=== PATIENT | female | born 1945 | race Caucasian/White ===

== ENCOUNTER → 2018-11-16 09:51 | Outpatient (CLI) | payer MEDICARE, SELFPAY ==
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
--- NOTE | 2018-11-16 | BRBX_PTH ---
PATIENT: PEGGY LINCOLN LOC: [facility] U#:[id number] AGE/SX: 79/F ROOM: RE11/16/[address]: Dr. Jones Calix MD : 1945 BED: DIS: SPEC #: [id number] RECD: 11/16/18 14:19 STATUS: AIDEN LUIS #: [id number] MICKEY: 11/16/18 00:[address]: Jones Calix DEPT: SURGICAL PATHOLOGY RECD BY: Car Jenkins ENTERED: 11/16/18 14:19 SP TYPE: BREAST BX OTHR DR: SANDY Spencer Tissues: A - Left breast, NOS B - Right breast, NOS Procedures: Surgery Specimen Level IV HEADER OPERATION: Bilateral breast stereotactic biopsy PRE-OP DIAGNOSIS: Bilateral breast calcifications TISSUE SUBMITTED: A - Left breast core tissue, B - Right breast core tissue MICROSCOPIC DIAGNOSIS A. Left breast, stereotactic core biopsy: Hyalinized fibroadenoma with focal calcifications. Negative for atypia or malignancy. B. Right breast, stereotactic core biopsy: Hyalinized fibroadenoma with focal calcifications. Focal intraductal hyperplasia without atypia. Negative for malignancy. JARRED:connor 11/17/18 COMMENT Correlation with clinical, radiologic findings and appropriate follow up are necessary. MICROSCOPIC DESCRIPTION Slides are reviewed. GROSS DESCRIPTION A - Received in fixative is one container labeled with the patient's name and designated left breast. The specimen consists of multiple elongated fragments of oneal-yellow fibroadipose tissue that in aggregate measure 5 x 0.3 x 0.1 cm. The entire specimen is submitted in two cassettes. B - Received in fixative is one container labeled with the patient's name and designated right breast. The specimen consists of multiple elongated fragments of oneal-yellow fibroadipose tissue that in aggregate measure 7.5 x 3 x 0.3 cm. The entire specimen is submitted in three cassettes. / JARRED:connor 11/16/18 TC:5 CPT: 21155 x2
--- NOTE | 2018-11-16 16:03 | OP.PCM_ITS ---
Report of Operation Date of Procedure: 11/16/18 Pre-Operative Diagnosis: bilateral breast microcalcifications Post-Operative Diagnosis: bilateral breast microcalcifications - successful bilateral biopsy Surgery/Procedure Performed:: left upper outer quadrant stereotactic biopsy with specimen radiograph and gel marker clip placement. Right central stereotactic biopsy with specimen radiograph and gel marker clip placement general education professor: None Type of Anesthesia:: Local Specimen's removed: left breast tissue, right breast tissue Estimated Blood Loss (mL): minimal Description of Procedure: The patient was brought to the stereotactic suite and informed of the plan course of events. The left breast was positioned CC approach on the Ferrell stereotactic table. Mammographic image demonstrated the area of abnormality to be located in the center of the radiograph. Stereotactic images were then obtained which demonstrated good positioning of the abnormality for biopsy with good stroke flako parameters. The breast was cleaned with Betadine area did one percent lidocaine was used to anesthetize the skin and a small stab incision made. An 8-gauge mammotome needle was placed into the pre-fire position. Stereotactic images demonstrated good positioning around the planned biopsy site. Local anesthetic injected deeply in the breast. The needle was deployed. Post deployment images demonstrated good positioning of the planned biopsy site. Multiple vacuum-assisted samples were obtained and [id number] fashion. Specimen radiograph demonstrated micro-calcifications in the sample. A gel marker clip was deployed. Post biopsy images demonstrated good position of the clip relative the biopsy cavity. The breast was removed from compression. Steri-Strips and a dressing applied. The right breast was positioned CC approach on the Ferrell stereotactic table. Mammographic image demonstrated the area of abnormality to be located in the center of the radiograph. Stereotactic images were then obtained which demonstrated good positioning of the abnormality for biopsy with good stroke flako parameters. The breast was cleaned with Betadine area did one percent lidocaine was used to anesthetize the skin and a small stab incision made. An 8-gauge mammotome needle was placed into the pre-fire position. Stereotactic images demonstrated good positioning around the planned biopsy site. Local anesthetic injected deeply in the breast. The needle was deployed. Post deployment images demonstrated good positioning of the planned biopsy site. Multiple vacuum-assisted samples were obtained and [id number] fashion. Specimen radiograph demonstrated micro-calcifications in the sample. A gel marker clip was deployed. Post biopsy images demonstrated good position of the clip relative the biopsy cavity. The breast was removed from compression. Steri-Strips and a dressing applied. Post procedure mammogram images were obtained.
== END ==
PROVIDERS: Family Provider Physician Assistant; PCP Physician Assistant; Referring Provider Surgery; Visit Provider Surgery
DX: D24.2 Benign neoplasm of left breast (principal); D24.1 Benign neoplasm of right breast; N60.91 Unspecified benign mammary dysplasia of right breast
CPT/HCPCS: 19081; 88305; J7050; A4648

== ENCOUNTER 2020-12-17 13:00 | Emergency (ER) | payer MEDICARE, SELFPAY ==
[2020-12-17 13:03] VITALS: BP 148/113; PULSE 89; RESP 16; TEMP 36.8; O2SAT 97; BMI 33.1
--- NOTE | 2020-12-17 13:21 | CT_ITS ---
HISTORY: LLQ pain. TECHNIQUE: Helically acquired images were obtained of the abdomen and pelvis with IV contrast. A radiation dose optimization technique was used for this scan. IV Contrast dosage and agent: 100 mL Isovue-300. Oral contrast: None. # of images incl. paperwork: [id number]. COMPARISON: None. FINDINGS: LOWER CHEST: Minimal bibasilar atelectasis or scarring. BOWEL: Small hiatal hernia. Bowel including appendix nondilated. Colonic diverticulosis with wall thickening and moderate pericolonic inflammation in the left lower quadrant. LIVER/SPLEEN/PANCREAS: Homogeneous. GALLBLADDER/BILIARY TREE: Gallbladder present. KIDNEYS/ADRENAL GLANDS: Unremarkable. PERITONEUM: No pericolonic fluid collection or free air. VESSELS: No abdominal aortic aneurysm. Mild atherosclerosis. PELVIC ORGANS: Absent uterus. Mild prolapse of the bladder. BONES: Degenerative change. CT/Abdomen/Pelvis W IV Cont ONLY IMPRESSION: Acute sigmoid diverticulitis. Individualized dose optimization techniques were used for this CT. at 1433 Reported and signed by: Karely Montejo MD Electronically Signed: Karely Montejo MD at 14:31 EDT Tel , Service support ,
--- NOTE | 2020-12-17 13:31 | EDS_ITS ---
HPI HPI - GI History of Present Illness Chief Complaint: Abd Pain Informant: patient Abdominal Pain/Flank Pain Onset: Yesterday Context: Gradual Onset Timing: Continuous Quality: Aching Location: LLQ Current Severity: Moderate Maximum Severity: 10/10 Worsened by: Nothing Relieved by: Nothing Nausea/Vomiting/Emesis GI Symptom: Positive for Nausea; Negative for Vomiting Onset: - (Occasionally) Diarrhea/Melena/Hematochezia GI Symptom: Negative for Diarrhea, Melena and Hematochezia Associated Symptoms Associated Symptoms: Negative for Dysuria, Frequency, Hematuria and Urgency Narrative Narrative: Patient started getting left lower quadrant pain yesterday, worse today, sometimes comes in waves and is as bad as a 10/10 but not that bad right now. No vomiting but occasional nausea. Normal bowel movements with no blood. Normal urination. No pain into her back or radiating elsewhere. She had a colonoscopy last month that showed diverticulosis. History of a prior hysterectomy no other abdominal surgeries. No fevers or chills yesterday or today. [facility] Medical History (Updated 12/17/20 @ 15:[address] Aaron Cota MD) Diverticulosis Home Medications ciprofloxacin HCl 500 mg PO BID #20 tablet 12/17/20 [Rx Last Taken Unknown] hydrocodone-acetaminophen 1 tab PO Q4H PRN PRN 3 Days #14 tablet 12/17/20 [Rx Last Taken Unknown] metronidazole 500 mg PO BID #20 tab 12/17/20 [Rx Last Taken Unknown] Allergy/AdvReac Type Severity Reaction Status Date / Time nitrofurantoin Allergy Upset Verified 12/17/20 13:02 [From Macrobid] Stomach Sulfa (Sulfonamide Allergy Upset Verified 12/17/20 13:02 Antibiotics) Stomach sulfamethoxazole Allergy Upset Verified 12/17/20 13:02 [From Bactrim] Stomach sunflower seed Allergy Upset Verified 12/17/20 13:02 Stomach trimethoprim [From Bactrim] Allergy Upset Verified 12/17/20 13:02 Stomach Surgical History Hx of hysterectomy Social History Smoking Status: Never smoker ROS ROS ED Constitutional Constitutional ED: Denies chills or fever(s) Eyes Eyes: Denies change in vision or diplopia ENT ENT ED: Denies rhinorrhea or sore throat Cardiovascular Cardiovascular: Denies chest pain or palpitations Respiratory/Chest Respiratory/Chest: Denies cough or dyspnea Gastrointestinal Gastrointestinal: Reports abdominal pain and nausea; Denies diarrhea or vomiting Genitourinary Genitourinary ED: Denies dysuria or hematuria Musculoskeletal Musculoskeletal: Denies back pain or neck pain Integumentary Denies abscess or rash Neurologic Neurologic: Denies headache(s), paresthesias or weakness Psychiatric Psychiatric: Denies anxiety or suicidal thoughts EXAM Physical Exam Const Vital Signs: 12/17/20 13:03 12/17/20 15:40 Temperature 98.3 F Temperature Source Temporal Pulse Rate 89 84 Respiratory Rate 16 16 Blood Pressure 148/113 H 133/72 H Blood Pressure Mean 124 92 Pulse Ox 97 94 Oxygen Delivery Method Room Air Room Air Positive well nourished and well developed General Appearance ED: well developed and NAD HEENT Reports moist mucous membranes normocephalic and atraumatic Eyes PERRL and EOMs intact bilaterally Neck full ROM and supple Resp normal respiratory effort and clear to auscultation bilaterally Cardio regular rate, regular rhythm and no murmurs GI non-distended Auscultation: normoactive bowel sounds Palpation: soft and tender LLQ; Negative for guarding or rebound tenderness present Back/Spine no CVA tenderness General Back: other FROM Extremity normal to inspection General Extremety ED: Negative for edema, pulses abnormal or tenderness General Extremity: Negative for edema or pulses abnormal Neuro oriented x3, CN's II-XII intact bilaterally and no sensory deficits noted Sensorium / Orientation: awake and alert Motor Exam: strength 5/5 throughout Skin no rashes or lesions noted and no wounds MDM MDM MDM Narrative Medical decision making narrative: Patient with a mild leukocytosis and a CT consistent with uncomplicated sigmoid diverticulitis. Patient's pain is under control with 2 mg of morphine. She was offered more but states she would rather just have some Tylenol or ibuprofen for her headache. She is comfortable and stable. I will give her a long-acting dose of IV ceftriaxone in addition to starting her on Cipro and Flagyl and advised close outpatient follow-up we discussed reasons to return she is comfortable with that plan and prescription for some analgesics. Lab Data Attestation: I reviewed the patient's lab results. Labs: Laboratory Results - last 24 hr 12/17/20 12/17/20 12/17/20 13:25 13:25 14:30 WBC 11.3 H RBC 4.38 Hgb 13.7 Hct 42.4 MCV 96.8 MCH 31.3 MCHC 32.3 RDW Std Deviation 45.1 H RDW Coeff of Flash 12.5 Plt Count 283 MPV 9.3 Immature Gran % (Auto) 0.300 Neut % (Auto) 78.0 H Lymph % (Auto) 12.3 L [place] % (Auto) 7.9 Eos % (Auto) 0.9 Baso % (Auto) 0.6 Absolute Neuts (auto) 8.9 H Absolute Lymphs (auto) 1.39 Nucleated RBC % 0 Sodium 140 Potassium 3.8 Chloride 106 Carbon Dioxide 29.0 Anion Gap 5 BUN 10 Creatinine 0.68 Estim Creat Clear Calc 40.21 Est GFR (MDRD) Af Amer 107 Est GFR (MDRD) Non-Af 89 BUN/Creatinine Ratio 14.6 Glucose 115 H Calcium 8.6 Urine Color Yellow Urine Clarity Clear Urine pH 8.0 Ur Specific [place] 1.030 Urine Protein Negative Urine Glucose (UA) Normal Urine Ketones Negative Urine Occult Blood Negative Urine Nitrite Negative Urine Bilirubin Negative Urine Urobilinogen Normal Ur Leukocyte Esterase Negative Urine RBC 0 SEEN Urine WBC 0-5 SEEN Ur Squamous Epith Cells 0-5 SEEN Urine Bacteria RARE Urine Mucus 0 SEEN Radiography Diagnostic Testing: Clinical Impression(s) from Imaging Studies Abdomen/Pelvis CT 12/17/20 13:21 IMPRESSION: Acute sigmoid diverticulitis. Individualized dose optimization techniques were used for this CT. at 1433 Reported and signed by: Karely Montejo MD Electronically Signed: Karely Montejo MD at 14:31 EDT Tel , Service support , Discharge Plan Triage Chief Complaint: Abd Pain ED Provider: Aaron Cota Dx/Rx/DC Orders Clinical Impression: Sigmoid diverticulitis Instructions: ED Diverticulitis Prescriptions: New hydrocodone-acetaminophen [hydrocodone-acetaminophen] 1 TABLET tablet 1 tab PO Q4H PRN PRN (Reason: Pain) 3 Days Qty: 14 RF: 0 metronidazole [metronidazole] 500 MG tablet 500 mg PO BID Qty: 20 RF: 0 ciprofloxacin HCl [ciprofloxacin HCl] 500 MG tablet 500 mg PO BID Qty: 20 RF: 0 Primary Care Provider: Eduin Aguilar Referrals: Eduin Aguilar, PA [Primary Care Provider] - 3-5 Days if not improving Disposition Disposition: Home, Self Care
[2020-12-17 13:41] LABS: Absolute Lymphocyte Count 1.39 X10^3/uL (0.83-4.51); Absolute Neutrophil Count 8.9 X10^3/uL (2.0-7.7); Basophil# 0.07 X10^3/uL; Basophil% 0.6 % (0-1); Eosinophils% 0.9 % (0-5); Hematocrit 42.4 % (37-47); Hemoglobin 13.7 g/dL (12.0-15.0); Lymphocyte # 1.39 X10^3/ul (0.83-4.51); Lymphocyte % 12.3 % (19-41); Mean Corp Hgb Conc 32.3 g/dL (32-36); Mean Corpuscular Hgb 31.3 pg (27.0-32.0); Mean Corpuscular Volume 96.8 fL (81-99); Mean Platelet Vol. 9.3 fl (6.2-12.0); Monocyte% 7.9 % (0-10); NRBC Flagged by Analyzer 0 % (0-5); Neutrophil # 8.85 X10^3/uL (2.7-7.7); Platelet Count 283 K/mm3 (150-450); RBC Distribution Width CV 12.5 % (11.6-14.6); RBC Distribution Width SD 45.1 fl (35.1-43.9); Red Blood Count 4.38 M/mm3 (4.2-5.4); White Blood Count 11.3 K/mm3 (4.4-11.0)
[2020-12-17 13:44] LABS: Anion Gap 5 (5-15); BUN 10 mg/dL (7-18); BUN/Creat Ratio 14.6 RATIO (10-20); Calcium,Total 8.6 mg/dL (8.5-10.1); Chloride 106 mmol/L (98-107); Creatinine, Serum 0.68 mg/dL (0.55-1.02); EST Glomerular Filtration Rate 89 mL/min (>60); Est Glom Filt Rate - Afr Amer 107 mL/min (>60); Estimated Creatinine Clearance 40.21 ml/min; Glucose 115 mg/dL (74-106); Potassium 3.8 mmol/L (3.5-5.1); Sodium Level 140 mmol/L (136-145)
[2020-12-17] MEDS: Ondansetron 4 MG/2 ML Vial IV (13:46)
[2020-12-17] MEDS: 0.9% Normal Saline 1,000 ML 250 ML IV (13:46)
[2020-12-17] MEDS: Morphine 2 MG/ML Syringe IV (13:46)
[2020-12-17 14:35] LABS: Mucous, Urine 0 SEEN /hpf (<or=2+); Red Blood Cells-Urine 0 SEEN /hpf (0-5)
[2020-12-17 14:38] LABS: Color, Urine Yellow (Yellow); Glucose, Dipstick Normal (Normal); Ketone-Dipstick Negative (Negative); Leukocyte Esterase-Dipstick Negative /ul (Negative); Nitrite-Dipstick Negative (Negative); Occult Blood-Urine Negative /ul (Negative); Protein-Dipstick Negative (Negative); Urine Bilirubin Dipstick Negative (Negative); Urine Clarity Clear (Clear); Urine Urobilinogen Normal (Normal)
[2020-12-17 14:51] LABS: Bacteria RARE /hpf (None Seen); Squamous Epithelial Cells - UA 0-5 SEEN /hpf (5-10); White Blood Cells 0-5 SEEN /hpf (0-5)
[2020-12-17 15:40] VITALS: BP 133/72; PULSE 84; RESP 16; O2SAT 94
[2020-12-17] MEDS: Ceftriaxone 1 GM/50 ML BAG IV (16:07)
[2020-12-17] MEDS: metroNIDAZOLE 500 MG Tablet PO (16:09)
[2020-12-17] MEDS: Ibuprofen 200 MG Tablet 400 MG PO (16:09)
[2020-12-17] MEDS: Ciprofloxacin 500 MG Tablet PO (16:11)
== END 2020-12-17 16:54 | disposition home or self-care (01) ==
PROVIDERS: Emergency Provider Emergency Medicine; PCP Physician Assistant
DX: K57.32 Diverticulitis of large intestine without perforation or abscess without bleeding (principal)
CPT/HCPCS: 74177; 80048; 81001; 85025; 90471; 96361; 96365; 96374; 96375; 99284; Q9967; J2405

== ENCOUNTER 2022-04-02 03:02 | Inpatient (IN) | payer MEDICARE, SELFPAY ==
[2022-04-02 03:03] VITALS: BP 140/89; PULSE 67; RESP 15; O2SAT 97
[2022-04-02 03:04] VITALS: TEMP 36.8; BMI 31.0
--- NOTE | 2022-04-02 03:12 | EDS_ITS ---
HPI HPI - GI History of Present Illness Chief Complaint: GI Bleed Informant: patient and EMS Narrative Narrative: Patient presents around 3 AM for rectal bleeding. She had hemorrhoid surgery at [facility] about 2 weeks ago, she has been taking a stool softener, she went to the bathroom earlier tonight and had a little bit of stool with some blood, and then subsequently the bleeding started becoming worse along with clots and now she is just passing blood with clots and no stool. She feels a little shaky but not lightheaded. She denies any abdominal pain, nausea, vomiting, nor back pain. No other issues, she has some perirectal/perianal irritation but not major pain. Patient takes no anticoagulant or antiplatelet medications. [facility] Medical History (Updated 04/02/22 @ 06:[address] Aaron Cota MD) Diverticulosis Home Medications ciprofloxacin HCl 500 mg tablet 500 mg PO BID #20 TABLETS 12/17/20 [Rx Last Taken Unknown] hydrocodone-acetaminophen 5-325mg 5mg-325mg 1 tab PO Q4H PRN PRN Pain 3 days #14 TABLETS 12/17/20 [Rx Last Taken Unknown] metronidazole 500 mg tablet 500 mg PO BID #20 tabs 12/17/20 [Rx Last Taken Unknown] Allergy/AdvReac Type Severity Reaction Status Date / Time nitrofurantoin Allergy Upset Verified 12/17/20 13:02 [From Macrobid] Stomach Sulfa (Sulfonamide Allergy Upset Verified 12/17/20 13:02 Antibiotics) Stomach sulfamethoxazole Allergy Upset Verified 12/17/20 13:02 [From Bactrim] Stomach sunflower seed Allergy Upset Verified 12/17/20 13:02 Stomach trimethoprim [From Bactrim] Allergy Upset Verified 12/17/20 13:02 Stomach Surgical History (Updated 04/02/22 @ 03:[address] Aaron Cota MD) H/O hemorrhoidectomy Hx of hysterectomy Social History Smoking Status: Never smoker ROS ROS ED Constitutional Constitutional ED: Reports malaise; Denies chills or fever(s) Eyes Eyes: Denies change in vision or diplopia ENT ENT ED: Denies rhinorrhea or sore throat Cardiovascular Cardiovascular: Denies chest pain or palpitations Respiratory/Chest Respiratory/Chest: Denies cough or dyspnea Gastrointestinal Gastrointestinal: Reports as per HPI and hematochezia; Denies abdominal pain, diarrhea, melena, nausea or vomiting Genitourinary Genitourinary ED: Denies dysuria or hematuria Musculoskeletal Musculoskeletal: Denies back pain or neck pain Integumentary Denies abscess or rash Neurologic Neurologic: Denies headache(s), paresthesias or weakness Psychiatric Psychiatric: Denies anxiety or suicidal thoughts EXAM Physical Exam Const Vital Signs: 04/02/22 03:04 04/02/22 03:03 Temperature 98.2 F Temperature Source Temporal Pulse Rate 67 Respiratory Rate 15 Blood Pressure 140/89 H Blood Pressure Mean 106 Pulse Ox 97 Oxygen Delivery Method Room Air Positive well nourished and well developed General Appearance ED: well developed and NAD HEENT Reports moist mucous membranes normocephalic and atraumatic Eyes PERRL and EOMs intact bilaterally Neck full ROM and supple Resp normal respiratory effort and clear to auscultation bilaterally Cardio regular rate, regular rhythm and no murmurs Rate: Negative for tachycardic GI non-tender and non-distended GI Narrative: Rectal: Multiple external nonthrombosed hemorrhoids without any obvious evidence of active bleeding at any of them. On digital rectal, it is uncomfortable but there is no palpable collection/mass, and there is no blood or pooling, maybe a trace of residual light red discolored brown stool. Auscultation: normoactive bowel sounds Palpation: soft Back/Spine no CVA tenderness General Back: other FROM Extremity normal to inspection General Extremety ED: Negative for edema, pulses abnormal or tenderness General Extremity: Negative for edema or pulses abnormal Neuro oriented x3, CN's II-XII intact bilaterally and no sensory deficits noted Sensorium / Orientation: awake and alert Motor Exam: strength 5/5 throughout Skin no rashes or lesions noted and no wounds MDM MDM MDM Narrative Medical decision making narrative: Patient was given IV fluids will be wait for labs to return, she is not anemic with a hemoglobin of 14.6. Vital signs have been stable/normal, a little hyp ertensive. She did feel better with the IV fluids. Early on prior to getting the fluids, she did go to the bathroom and have a bowel movement with some stool and blood and clots. We then observed her for a while. Since on rectal exam there is no active bleeding, this is after she went and had the bloody bowel movement in the ED, bleeding diverticulosis is in the differential diagnosis; she did have diverticulitis in the past. On multiple other occasions, the patient continued to have larger amounts of bright red blood per rectum with clots. Since it is not improving, I do not think she should go home and she should be observed. I gave her the option if she wanted to go back to [place] since that is where her surgeon was, however she would prefer to stay locally. Discussed w/ Dr. Grant hospitalist and Dr. Brito GI. Lab Data Attestation: I reviewed the patient's lab results. Labs: Laboratory Results - last 24 hr 04/02/22 04/02/22 03:25 03:25 WBC 14.1 H RBC 4.83 Hgb 14.6 Hct 45.9 MCV 95.0 MCH 30.2 MCHC 31.8 L RDW Std Deviation 42.4 RDW Coeff of Flash 12.1 Plt Count 470 H MPV 9.2 Immature Gran % (Auto) 0.500 Neut % (Auto) 72.6 H Lymph % (Auto) 17.6 L [place] % (Auto) 7.1 Eos % (Auto) 1.4 Baso % (Auto) 0.8 Absolute Neuts (auto) 10.2 H Absolute Lymphs (auto) 2.49 Nucleated RBC % 0 Sodium 140 Potassium 3.8 Chloride 103 Carbon Dioxide 27.0 Anion Gap 10 BUN 18 Creatinine 0.74 Estim Creat Clear Calc 40.68 Est GFR (MDRD) Af Amer 97 Est GFR (MDRD) Non-Af 81 BUN/Creatinine Ratio 24.2 H Glucose 148 H Calcium 8.9 Discharge Plan Dx/Rx/DC Orders Clinical Impression: Acute lower gastrointestinal bleeding Disposition Disposition: Acute Care Hospital [facility]
[2022-04-02 03:33] LABS: Absolute Lymphocyte Count 2.49 X10^3/uL (0.83-4.51); Absolute Neutrophil Count 10.2 X10^3/uL (2.0-7.7); Basophil# 0.11 X10^3/uL; Basophil% 0.8 % (0-1); Eosinophils% 1.4 % (0-5); Hematocrit 45.9 % (37-47); Hemoglobin 14.6 g/dL (12.0-15.0); Lymphocyte # 2.49 X10^3/ul (0.83-4.51); Lymphocyte % 17.6 % (19-41); Mean Corp Hgb Conc 31.8 g/dL (32-36); Mean Corpuscular Hgb 30.2 pg (27.0-32.0); Mean Platelet Vol. 9.2 fl (6.2-12.0); Monocyte% 7.1 % (0-10); NRBC Flagged by Analyzer 0 % (0-5); Neutrophil # 10.24 X10^3/uL (2.7-7.7); Neutrophil % 72.6 % (47-70); Platelet Count 470 K/mm3 (150-450); RBC Distribution Width CV 12.1 % (11.6-14.6); RBC Distribution Width SD 42.4 fl (35.1-43.9); Red Blood Count 4.83 M/mm3 (4.2-5.4); White Blood Count 14.1 K/mm3 (4.4-11.0)
[2022-04-02 03:47] LABS: Anion Gap 10 (5-15); BUN 18 mg/dL (7-18); BUN/Creat Ratio 24.2 RATIO (10-20); Calcium,Total 8.9 mg/dL (8.5-10.1); Chloride 103 mmol/L (98-107); Creatinine, Serum 0.74 mg/dL (0.55-1.02); EST Glomerular Filtration Rate 81 mL/min (>60); Est Glom Filt Rate - Afr Amer 97 mL/min (>60); Estimated Creatinine Clearance 40.68 ml/min; Glucose 148 mg/dL (74-106); Potassium 3.8 mmol/L (3.5-5.1); Sodium Level 140 mmol/L (136-145)
--- NOTE | 2022-04-02 06:42 | PCM.PN.BLA ---
Progress Note Patient was not seen or examined. History was taken from emergency department doctor. Reportedly patient recently had hemorrhoidal surgery at [facility]. Per Emergency Department doctor examination bleeding is likely not coming from previous hemorrhoid site but likely diverticular bleed.
--- NOTE | 2022-04-02 07:18 | HP.PCM.HOS_ITS ---
HPI - General General Date of Admission: 04/02/22 Date of Service: 04/02/22 Chief Complaint: Bleeding per rectum HPI Narrative PEGGY LINCOLN, is a 76 F who underwent hemorrhoidal surgery at [facility] on 03/22/2022 who presented with bleeding per rectum. Per patient symptoms started in the early hours of the morning. She denied any pain prior to the onset of bleeding. She did notice clots. In view of persistent nature of symptoms presented to the emergency department. A presumptive diagnosis of acute diverticular bleed was made patient admitted to regular nursing floor with consultation placed to GI [facility] Medical History Diverticulosis Home Medications ciprofloxacin HCl 500 mg tablet 500 mg PO BID #20 TABLETS 12/17/20 [Rx Last Taken Unknown] hydrocodone-acetaminophen 5-325mg 5mg-325mg 1 tab PO Q4H PRN PRN Pain 3 days #14 TABLETS 12/17/20 [Rx Last Taken Unknown] metronidazole 500 mg tablet 500 mg PO BID #20 tabs 12/17/20 [Rx Last Taken Unknown] Allergy/AdvReac Type Severity Reaction Status Date / Time nitrofurantoin Allergy Upset Verified 12/17/20 13:02 [From Macrobid] Stomach Sulfa (Sulfonamide Allergy Upset Verified 12/17/20 13:02 Antibiotics) Stomach sulfamethoxazole Allergy Upset Verified 12/17/20 13:02 [From Bactrim] Stomach sunflower seed Allergy Upset Verified 12/17/20 13:02 Stomach trimethoprim [From Bactrim] Allergy Upset Verified 12/17/20 13:02 Stomach Family History (Updated 04/02/22 @ 07:[address] Kirt Greenberg MD) Mother Asthma Surgical History H/O hemorrhoidectomy Hx of hysterectomy Social History Smoking Status: Never smoker ROS ROS Narrative GENERAL: denies fever, chills, night sweats, weight loss, anorexia HEENT: denies headache, sinus congestion, or drainage, dysphagia RESPIRATORY: denies cough, sputum production, shortness of breath, dyspnea on exertion CARDIAC: denies chest pain, palpitations, orthopnea, PND GASTROINTESTINAL: Hematochezia GENITOURINARY: denies dysuria, urgency, frequency, heamaturia EXTREMITY: denies swelling MUSCULOSKELETAL: denies current joint pain or tenderness NEUROLOGIC: denies focal numbness, weakness, tingling HEMATOLOGIC: denies easy bruising and/or hemorrhage INTEGUMENT: denies rashes PSYCHIATRIC: denies suicidal or homicidal ideation Vital Signs Vital Signs Vital Signs: 04/02/22 03:04 04/02/22 03:03 Temperature 98.2 F Temperature Source Temporal Pulse Rate 67 Respiratory Rate 15 Blood Pressure 140/89 H Blood Pressure Mean 106 Pulse Ox 97 Oxygen Delivery Method Room Air Weight Weight: 82.024 kg Body Mass Index (BMI) 31.0 Physical Exam Narrative GENERAL: cooperative HEENT: Atraumatic; normocephalic EYES; Anicteric, Normal Conjunctiva NECK; supple, normal thyroid, RESPIRATORY: Diminished to auscultation CARDIOVASCULAR: Regular S1 S2, GI: soft, normoactive bowel sounds, : No Renal angle tenderness; EXTREMITIES: No edema, no clubbing, MUSCULOSKELETAL: no muscle wasting NEURO: Awake; no lateralizing signs. SKIN: No Rash PSYCH; Flat affect Results Lab / Micro Data Result Diagrams: 04/02/22 03:25 04/02/22 03:25 Labs: Laboratory Results - last 24 hr 04/02/22 03:25: WBC 14.1 H, RBC 4.83, Hgb 14.6, Hct 45.9, MCV 95.0, MCH 30.2, MCHC 31.8 L, RDW Std Deviation 42.4, RDW Coeff of Flash 12.1, Plt Count 470 H, MPV 9.2, Immature Gran % (Auto) 0.500, Neut % (Auto) 72.6 H, Lymph % (Auto) 17.6 L, [place] % (Auto) 7.1, Eos % (Auto) 1.4, Baso % (Auto) 0.8, Absolute Neuts (auto) 10.2 H, Absolute Lymphs (auto) 2.49, Nucleated RBC % 0 04/02/22 03:25: Sodium 140, Potassium 3.8, Chloride 103, Carbon Dioxide 27.0, Anion Gap 10, BUN 18, Creatinine 0.74, Estim Creat Clear Calc 40.68, Est GFR (MDRD) Af Amer 97, Est GFR (MDRD) Non-Af 81, BUN/Creatinine Ratio 24.2 H, Glucose 148 H, Calcium 8.9 Assessment & Plan Assessment/Plan (1) Acute lower gastrointestinal bleeding: PLAN: Plan Patient is a 76-year-old lady presented with bleeding per rectum 1. Acute lower GI bleed ? With high suspicion for diverticular bleed. Patient has been admitted to regular nursing floor as part of her management ordered CT of the abdomen and pelvis with contrast, H&H q. 6 hours and consultation placed to GI 2. Recent hemorrhoidal surgery ? Stable 3. Hyperglycemia ? Patient fasting blood glucose was 148 patient is not a known diabetic ordered hemoglobin A1c 4. Class I obesity with BMI of 31 ? Weight loss advised 5. DVT prophylaxis ? Bilateral SCDs Time spent in the patient's overall evaluation,decision-making process, review of diagnostic data, adjustment of management, discussion with other providers, nursing nursing and ancillary staff involved in patient's care documentation, 55 Minutes Advance planning; did discuss with the patient and family regarding advanced directives as well as CODE STATUS. Did explain the various scenarios involved ( FULL CODE, DNR CCA, DNR CCA with no intubation, and DNR CC and what each meant) patient elected full code with CPR and intubation if needed. Order was placed. Time spent on discussion 18 minutes. Charges/Coding Visit Charges Inpatient E&M: 76718 Init Hosp L2
--- NOTE | 2022-04-02 07:18 | CT_ITS ---
STUDY: CTA ABDOMEN AND PELVIS WITH CONTRAST REASON FOR EXAM: Female, 76 years old. Diverticular bleed RADIATION DOSAGE (If Supplied By Facility): CTDIvol = ( 20.84 ) mGy, DLP = ( 1992.39 ) mGycm TECHNIQUE: Transaxial images were obtained from the dome of the diaphragm to the symphysis pubis without oral contrast. IV 100mL Isovue-370 was administered. Sagittal and coronal images were reconstructed. Individualized dose optimization techniques were used for this CT. COMPARISON: Comparison is made with prior study 12/17/2020. FINDINGS: The visualized lung bases are unremarkable. Coronary artery calcification. There is decreased attenuation of the liver consistent with steatosis. Normal gallbladder and extrahepatic biliary system. Normal spleen. Normal pancreas. Normal bilateral adrenal glands. Normal right kidney. Normal left kidney. There is a small hiatal hernia. Normal small intestine. There are multiple colonic diverticula consistent with diverticulosis. The appendix is visualized and appears normal. There is scattered atherosclerotic calcification of the abdominal aorta, without a demonstrated aneurysm. Normal inferior vena cava. Normal retroperitoneum. Normal urinary bladder. There is absence of the uterus consistent with a prior hysterectomy. Normal abdominal wall. There are diffuse degenerative changes of the visualized lumbar spine. CT/CT ANGIO ABD&PEL W/O&W/DYE IMPRESSION: Fatty infiltration of the liver. Sigmoid diverticulosis with no radiographic evidence of diverticulitis at this time. Electronically Signed: Oswald García MD at 8:36 EST ,
[2022-04-02 08:05] VITALS: BP 131/82; BP 132/78; BP 133/70; PULSE 84; PULSE 85
[2022-04-02 08:08] VITALS: BP 131/82; PULSE 84; RESP 14; TEMP 36.1; O2SAT 94
[2022-04-02 13:53] VITALS: BMI 31.1
[2022-04-02] MEDS: 0.9% Normal Saline 1,000 ML 75 ML IV (14:24)
[2022-04-02 14:30] LABS: Hematocrit 38.2 % (37-47); Hemoglobin 12.6 g/dL (12.0-15.0)
--- NOTE | 2022-04-02 15:19 | CHAPLAIN ---
Type of Pastoral Visit _x__ Initial Visit ___ Follow-up Visit ___ On-call Visit ___ General Patient Visit ___ Spiritual Assessment ___ Family Conference ___ Bereavement ___ Rapid Response ___ Code Blue ___ Other (describe below) Pastoral Care Referral From _x__ Patient ___ Family ___ Nurse ___ Physician ___ Agricultural Economics Teacher ___ Poultry Farmer Meat ___ Other (describe below) Sacrament/Intervention _x__ Active listening ___ Anointing ___ Gnosticism ___ Bereavement ___ Communion _x__ Rakel exploration ___ _x__ Life review _x__ Prayer ___ Reconciliation ___ Sacrament of Sick ___ Supportive presence ___ Wedding ___ Other (describe below) Pastoral Comments patient welcomes spiritual care support; pt reviews numerous things that relate 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
--- NOTE | 2022-04-02 19:41 | CON.PCM.GI_ITS ---
HPI Consult Data Date of Consult: 04/02/22 HPI Narrative Reason for Consultation: Lower GI bleed HPI Narrative: PEGGY LINCOLN, is a 76 F who presents as an outpatient with multiple episodes of bright red blood per rectum that progressed to maroon stools with continuous bleeding per rectum. ? She had hemorrhoid surgery at [facility] about 2 weeks ago, she has been taking a stool softener, she went to the bathroom earlier tonight and had a little bit of stool with some blood, and then subsequently the bleeding started becoming worse along with clots and now she is just passing blood with clots and no stool.? She felt a little shaky, but not lightheaded.? She denies any abdominal pain, nausea, vomiting, nor back pain.? No other issues, she has some perirectal/perianal irritation but not major pain. Patient takes no anticoagulant or antiplatelet medications. She does have a history of chronic constipation patient a and was having the patient prior to having bleeding per rectum. She typically takes Benefiber, stool softeners and probiotic along with magnesium supplement in order to have a bowel movement on a daily basis. Her hemoglobin was stable in the ED at 13.2. A CT scan abdomen pelvis had shown diverticular disease without signs of diverticulitis. [facility] Medical History (Updated 04/02/22 @ 13:06 by Marian Valiente) Diverticulosis Fracture, ankle GERD (gastroesophageal reflux disease) Home Medications Bio Cleanse 1 tablet PO/SL DAILY SUPPLEMENT 04/02/22 [History Last Taken 03/31/22] docusate sodium 100 mg capsule (Stool Softener) 200 mg PO DAILY constipation 04/02/22 [History Last Taken 04/02/22] guar gum 1 tbsp PO DAILY stool 04/02/22 [History Last Taken 04/02/22] lactobacillus combination no.4 3 billion cell capsule (Probiotic) 30,000,000 cell PO DAILY PROBIOTIC 04/02/22 [History Last Taken 03/31/22] magnesium oxide 400 mg PO DAILY supplement 04/02/22 [History Last Taken 03/31/22] Allergy/AdvReac Type Severity Reaction Status Date / Time nitrofurantoin Allergy Upset Verified 12/17/20 13:02 [From Macrobid] Stomach Sulfa (Sulfonamide Allergy Upset Verified 12/17/20 13:02 Antibiotics) Stomach sulfamethoxazole Allergy Upset Verified 12/17/20 13:02 [From Bactrim] Stomach sunflower seed Allergy Upset Verified 12/17/20 13:02 Stomach trimethoprim [From Bactrim] Allergy Upset Verified 12/17/20 13:02 Stomach Family History (Updated 04/02/22 @ 07:[address] Kirt Greenberg MD) Mother Asthma Surgical History H/O hemorrhoidectomy Hx of hysterectomy Social History Smoking Status: Never smoker ROS ROS Narrative GENERAL: denies fever, chills, night sweats, weight loss, anorexia HEENT: denies headache, sinus congestion, or drainage, dysphagia RESPIRATORY: denies cough, sputum production, shortness of breath, dyspnea on exertion CARDIAC: denies chest pain, palpitations, orthopnea, PND GASTROINTESTINAL: Hematochezia GENITOURINARY: denies dysuria, urgency, frequency, heamaturia EXTREMITY: denies swelling MUSCULOSKELETAL: denies current joint pain or tenderness NEUROLOGIC: denies focal numbness, weakness, tingling HEMATOLOGIC: denies easy bruising and/or hemorrhage INTEGUMENT: denies rashes PSYCHIATRIC: denies suicidal or homicidal ideation Physical Exam Narrative GENERAL: cooperative HEENT: Atraumatic; normocephalic EYES; Anicteric, Normal Conjunctiva NECK; supple, normal thyroid, RESPIRATORY: Diminished to auscultation CARDIOVASCULAR: Regular S1 S2, GI: soft, normoactive bowel sounds, : No Renal angle tenderness; EXTREMITIES: No edema, no clubbing, MUSCULOSKELETAL: no muscle wasting NEURO: Awake; no lateralizing signs. SKIN: No Rash PSYCH; Flat affect Lab / Micro Data Result Diagrams: 04/02/22 14:18 04/02/22 03:25 Labs: Laboratory Results - last 24 hr 04/02/22 03:25: WBC 14.1 H, RBC 4.83, Hgb 14.6, Hct 45.9, MCV 95.0, MCH 30.2, MCHC 31.8 L, RDW Std Deviation 42.4, RDW Coeff of Flash 12.1, Plt Count 470 H, MPV 9.2, Immature Gran % (Auto) 0.500, Neut % (Auto) 72.6 H, Lymph % (Auto) 17.6 L, Bennett % (Auto) 7.1, Eos % (Auto) 1.4, Baso % (Auto) 0.8, Absolute Neuts (auto) 10.2 H, Absolute Lymphs (auto) 2.49, Nucleated RBC % 0 04/02/22 03:25: Sodium 140, Potassium 3.8, Chloride 103, Carbon Dioxide 27.0, A nion Gap 10, BUN 18, Creatinine 0.74, Estim Creat Clear Calc 40.68, Est GFR (MDRD) Af Amer 97, Est GFR (MDRD) Non-Af 81, BUN/Creatinine Ratio 24.2 H, Glucose 148 H, Calcium 8.9 04/02/22 14:18: Hgb 12.6, Hct 38.2 Radiology Impression Abdomen/Pelvis CTA 04/02/22 07:18 IMPRESSION: Fatty infiltration of the liver. Sigmoid diverticulosis with no radiographic evidence of diverticulitis at this time. Electronically Signed: Oswald García MD at 8:36 EST , Assessment & Plan Assessment/Plan (1) Acute lower gastrointestinal bleeding: PLAN: I differential diagnosis for lower GI bleeding in her would be diverticular bleeding, angiodysplastic lesions, stercoral ulcer secondary to chronic idiopathic constipation, less likely neoplasia as she has had 3 previous colonoscopies in the past. Her CT scan abdomen pelvis does not show any acute disease such as ischemia. Also her hemoglobin seems to be stable and she has not had any bleeding since being admitted to the hospital. I would recommend to advance her diet to clear liquid diet and if she does not have any bleeding with eating she can be discharged to home tomorrow. If she does start bleeding then she will need a colonoscopy. Charges/Coding Visit Charges Inpatient E&M: 45607 Init Hosp L2
[2022-04-02 19:43] VITALS: BP 118/74; PULSE 81; RESP 18; TEMP 37; O2SAT 96
[2022-04-02 20:07] LABS: Hematocrit 37.3 % (37-47); Hemoglobin 11.8 g/dL (12.0-15.0)
[2022-04-03 01:40] LABS: Hematocrit 33.4 % (37-47); Hemoglobin 10.6 g/dL (12.0-15.0)
[2022-04-03] MEDS: 0.9% Normal Saline 1,000 ML 75 ML IV ×2 (01:40→14:14)
[2022-04-03 02:00] VITALS: BP 103/58; PULSE 82; RESP 18; TEMP 36.9; O2SAT 96
[2022-04-03 07:04] LABS: Absolute Lymphocyte Count 1.41 X10^3/uL (0.83-4.51); Absolute Neutrophil Count 5.8 X10^3/uL (2.0-7.7); Basophil# 0.04 X10^3/uL; Basophil% 0.5 % (0-1); Eosinophil# 0.03 X10^3/uL; Eosinophils% 0.4 % (0-5); Hematocrit 30.6 % (37-47); Hemoglobin 10.2 g/dL (12.0-15.0); Lymphocyte # 1.41 X10^3/ul (0.83-4.51); Lymphocyte % 17.9 % (19-41); Mean Corp Hgb Conc 33.3 g/dL (32-36); Mean Corpuscular Hgb 32.1 pg (27.0-32.0); Mean Corpuscular Volume 96.2 fL (81-99); Mean Platelet Vol. 9.2 fl (6.2-12.0); Monocyte# 0.57 X10^3/uL; Monocyte% 7.2 % (0-10); NRBC Flagged by Analyzer 0 % (0-5); Neutrophil # 5.77 X10^3/uL (2.7-7.7); Neutrophil % 73.4 % (47-70); Platelet Count 322 K/mm3 (150-450); RBC Distribution Width CV 12.4 % (11.6-14.6); RBC Distribution Width SD 43.5 fl (35.1-43.9); Red Blood Count 3.18 M/mm3 (4.2-5.4); White Blood Count 7.9 K/mm3 (4.4-11.0)
--- NOTE | 2022-04-03 07:21 | PN.HOSP_ITS ---
Reason for Visit Reason for Visit: Diagnoses Gastrointestinal hemorrhage, unspecified (04/02/22) Subjective Subjective Patient admitted with acute lower GI bleed. Per patient her last bowel movement contained blood. Plan is to continue to monitor Objective Data Objective Data Vital Signs: Vital Signs Temp Pulse Resp BP Pulse Ox O2 Del Method 98.4 F 82 18 103/58 L 96 Room Air 04/03/22 02:00 04/03/22 02:00 04/03/22 02:00 04/03/22 02:00 04/03/22 02:00 04/03/22 02:00 Oxygen Delivery Method Room Air Weight: 82.463 kg Body Mass Index (BMI) 31.1 Intake & Output: Intake and Output for Last 24 Hours 04/01/22 04/02/22 04/03/22 23:59 23:59 23:59 Intake Total 500 / 500 1045 / 1045 Output Total 200 / 200 Balance 500 / 300 845 / 845 Lab / Micro Data Result Diagrams: 04/03/22 06:30 04/03/22 06:30 Labs: Laboratory Results - last 24 hr 04/02/22 14:18: Hgb 12.6, Hct 38.2 04/02/22 19:55: Hgb 11.8 L, Hct 37.3 04/03/22 01:35: Hgb 10.6 L, Hct 33.4 L 04/03/22 06:30: WBC 7.9, RBC 3.18 L, Hgb 10.2 L, Hct 30.6 L, MCV 96.2, MCH 32.1 H, MCHC 33.3, RDW Std Deviation 43.5, RDW Coeff of Flash 12.4, Plt Count 322, MPV 9.2, Immature Gran % (Auto) 0.600, Neut % (Auto) 73.4 H, Lymph % (Auto) 17.9 L, [place] % (Auto) 7.2, Eos % (Auto) 0.4, Baso % (Auto) 0.5, Absolute Neuts (auto) 5. 8, Absolute Lymphs (auto) 1.41, Nucleated RBC % 0 Radiography Diagnostic Testing: Radiology Impression Abdomen/Pelvis CTA 04/02/22 07:18 IMPRESSION: Fatty infiltration of the liver. Sigmoid diverticulosis with no radiographic evidence of diverticulitis at this time. Electronically Signed: Oswald García MD at 8:36 EST , Physical Exam Narrative GENERAL: cooperative HEENT: Atraumatic; normocephalic EYES; Anicteric, Normal Conjunctiva NECK; supple, normal thyroid, RESPIRATORY: Diminished to auscultation CARDIOVASCULAR: Regular S1 S2, GI: soft, normoactive bowel sounds, : No Renal angle tenderness; EXTREMITIES: No edema, no clubbing, MUSCULOSKELETAL: no muscle wasting NEURO: Awake; no lateralizing signs. SKIN: No Rash PSYCH; Flat affect Assessment & Plan Assessment/Plan (1) Acute lower gastrointestinal bleeding: PLAN: Plan Patient is a 76-year-old lady presented with bleeding per rectum 1. Acute lower GI bleed ? With high suspicion for diverticular bleed. Patient has been admitted to regular nursing floor as part of her management ordered CT of the abdomen and pelvis with contrast, H&H q. 6 hours and consultation placed to GI ? 04/03/2022; patient continues to experience bleeding per rectum. Patient was seen in consultation by Dr. Brito with GI his notes and recommendations reviewed 2. Anemia ? Secondary to acute blood loss anemia ? Hemoglobin on admission was 14.6 down to 10.2 we will continue with monitoring and transfuse if patient is deemed to be symptomatic or hemoglobin falls below 7 3. Recent hemorrhoidal surgery ? Stable 4. Hyperglycemia ? Patient fasting blood glucose was 148 patient is not a known diabetic ordered hemoglobin A1c 5. Class I obesity with BMI of 31 ? Weight loss advised 6. DVT prophylaxis ? Bilateral SCDs Time spent in the patient's overall evaluation,decision-making process, review of diagnostic data, adjustment of management, discussion with other providers, nursing nursing and ancillary staff involved in patient's care documentation, 55 Minutes Charges/Coding Visit Charges Inpatient E&M: 25359 [facility] Hosp L3
[2022-04-03 07:38] LABS: Anion Gap 6 (5-15); BUN 21 mg/dL (7-18); BUN/Creat Ratio 40.8 RATIO (10-20); Calcium,Total 8.3 mg/dL (8.5-10.1); Chloride 109 mmol/L (98-107); Creatinine, Serum 0.52 mg/dL (0.55-1.02); EST Glomerular Filtration Rate 123 mL/min (>60); Est Glom Filt Rate - Afr Amer 149 mL/min (>60); Estimated Creatinine Clearance 40.68 ml/min; Glucose 129 mg/dL (74-106); Potassium 3.7 mmol/L (3.5-5.1); Sodium Level 141 mmol/L (136-145)
[2022-04-03 08:46] VITALS: BP 112/63; PULSE 77; RESP 16; TEMP 36.7; O2SAT 94
[2022-04-03 10:19] LABS: Hemoglobin A1c 5.4 % (3.8-5.6)
[2022-04-03 14:02] VITALS: BP 113/61; PULSE 80; RESP 16; TEMP 36.6; O2SAT 97
--- NOTE | 2022-04-03 14:45 | CASEMGMT ---
JOSE KAT DC Planning Assessment: Face to face with pt for initial transition planning/care coordination. JOSE KAT introduced self and role at [facility], pt voiced understanding. Pt alert, oriented x4 and agreeable to participating in assessment. Care providers, pharmacy, and demographic verified. Admitting dx: rectal bleeding PCP: SANDY Welsh Specialists: Dr. Avelar (F [facility] surgeon) Preferred Pharmacy: [facility] Insurance: [employer] [facility] with prescription benefit Living will/HPOA: None LNOK: son Krishna, daughter Lavonne Living Arrangements: Pt lives in a mobile home with 2 steps to enter. Pt states she is independent with ADLs including self care and household tasks. Pt states she still works. Transportation: pt drives, family is able to assist if needed DME: raised toilet seat with handbars HHC/SNF: denies Plan: Pt plans to return home at discharge with the support of her family. Pt denies any dc needs at this time. Will continue to monitor and assist with DC planning needs as identified. Ava Paiz RN CM
[2022-04-03] MEDS: metroNIDAZOLE 500 MG/100 ML BAG 100 MG IV ×2 (15:12→22:45)
[2022-04-03] MEDS: Ciprofloxacin 500 MG Tablet PO ×2 (15:51→22:43)
[2022-04-03 18:40] VITALS: BP 127/62; PULSE 76; RESP 16; TEMP 36.8; O2SAT 95
--- NOTE | 2022-04-03 19:01 | PCM.PROGNOTE ---
Subjective Subjective Patient had a large bowel movement today. She did have some blood in her stool. She wishes to undergo a colonoscopy tomorrow. Objective Data Objective Data Vital Signs: Vital Signs Temp Pulse Resp BP Pulse Ox O2 Del Method 98.3 F 76 16 127/62 H 95 Room Air 04/03/22 18:40 04/03/22 18:40 04/03/22 18:40 04/03/22 18:40 04/03/22 18:40 04/03/22 18:40 Oxygen Delivery Method Room Air Weight: 181 lb 12.797 oz Body Mass Index (BMI) 31.1 Intake & Output: Intake and Output for Last 24 Hours 04/01/22 04/02/22 04/03/22 23:59 23:59 23:59 Intake Total 500 / 500 2087.5 / 2087.5 Output Total 200 / 200 Balance 500 / 300 1887.5 / 1887.5 Lab / Micro Data Result Diagrams: 04/03/22 06:30 04/03/22 06:30 Labs: Laboratory Results - last 24 hr 04/02/22 19:55: Hgb 11.8 L, Hct 37.3 04/03/22 01:35: Hgb 10.6 L, Hct 33.4 L 04/03/22 06:30: WBC 7.9, RBC 3.18 L, Hgb 10.2 L, Hct 30.6 L, MCV 96.2, MCH 32.1 H, MCHC 33.3, RDW Std Deviation 43.5, RDW Coeff of Flash 12.4, Plt Count 322, MPV 9.2, Immature Gran % (Auto) 0.600, Neut % (Auto) 73.4 H, Lymph % (Auto) 17.9 L, [place] % (Auto) 7.2, Eos % (Auto) 0.4, Baso % (Auto) 0.5, Absolute Neuts (auto) 5.8, Absolute Lymphs (auto) 1.41, Nucleated RBC % 0 04/03/22 06:30: Sodium 141, Potassium 3.7, Chloride 109 H, Carbon Dioxide 26.0, Anion Gap 6, BUN 21 H, Creatinine 0.52 L, Estim Creat Clear Calc 40.68, Est GFR (MDRD) Af Amer 149, Est GFR (MDRD) Non-Af 123, BUN/Creatinine Ratio 40.8 H, Glucose 129 H, Calcium 8.3 L 04/03/22 06:30: Hemoglobin A1c 5.4 Physical Exam Narrative GENERAL: cooperative HEENT: Atraumatic; normocephalic EYES; Anicteric, Normal Conjunctiva NECK; supple, normal thyroid, RESPIRATORY: Diminished to auscultation CARDIOVASCULAR: Regular S1 S2, GI: soft, normoactive bowel sounds, : No Renal angle tenderness; EXTREMITIES: No edema, no clubbing, MUSCULOSKELETAL: no muscle wasting NEURO: Awake; no lateralizing signs. SKIN: No Rash PSYCH; Flat affect Assessment & Plan Assessment/Plan (1) Acute lower gastrointestinal bleeding: PLAN: I differential diagnosis for lower GI bleeding in her would be diverticular bleeding, angiodysplastic lesions, stercoral ulcer secondary to chronic idiopathic constipation, less likely neoplasia as she has had 3 previous colonoscopies in the past. Her CT scan abdomen pelvis does not show any acute disease such as ischemia. Also her hemoglobin seems to be stable and she has not had any bleeding since being admitted to the hospital. I would recommend a colonoscopy for tomorrow. I will give her a colon prep tonight. Charges/Coding Visit Charges Inpatient E&M: 31219 Subs Hosp L2
[2022-04-03] MEDS: Bisacodyl 5 MG Tablet 20 MG PO (20:01)
[2022-04-03] MEDS: Polyethylene Glycol 3350 BOWEL PREP PO (20:09)
[2022-04-03 20:21] VITALS: BP 139/67; PULSE 79; RESP 18; TEMP 36.7; O2SAT 100
[2022-04-04] VITALS (10 sets, daily range): BP systolic 88–141; BP diastolic 45–82; PULSE 71–78; RESP 16; TEMP 36.2–36.9; O2SAT 96–99
[2022-04-04] MEDS: 0.9% Normal Saline 1,000 ML 75 ML IV (03:55)
[2022-04-04 04:38] LABS: Hematocrit 34.3 % (37-47); Hemoglobin 10.9 g/dL (12.0-15.0)
--- NOTE | 2022-04-04 05:55 | EKG12_ITS ---
Test Reason : Morning EKG Blood Pressure : / mmHG Vent. Rate : 074 BPM Atrial Rate : 074 BPM P-R Int : 178 ms QRS Dur : 074 ms QT Int : 406 ms P-R-T Axes : 026 032 009 degrees QTc Int : 450 ms Normal sinus rhythm Low voltage QRS Borderline ECG When compared with ECG of 20-AUG-2012 05:39, No significant change was found Confirmed by BISHOP MANCINI, NAYE ([id number]), staff editor PAULINA PÉREZ ([id number]) on 04/05/2022 12:49:28 P M Referred By: Dionicio Confirmed By:MARION ALAS MD
[2022-04-04] MEDS: metroNIDAZOLE 500 MG/100 ML BAG 100 MG IV (06:19)
--- NOTE | 2022-04-04 08:55 | PCM.PN.HOSP ---
Reason for Visit Reason for Visit: Diagnoses Gastrointestinal hemorrhage, unspecified (04/02/22) Subjective Subjective Patient is scheduled to undergo colonoscopy by Dr. Brito Objective Data Objective Data Vital Signs: Vital Signs Temp Pulse Resp BP Pulse Ox O2 Del Method 98.4 F 76 16 140/72 H 99 Room Air 04/04/22 04:57 04/04/22 04:57 04/04/22 04:57 04/04/22 04:57 04/04/22 04:57 04/04/22 04:57 Oxygen Delivery Method Room Air Weight: 82.463 kg Body Mass Index (BMI) 31.1 Intake & Output: Intake and Output for Last 24 Hours 04/02/22 04/03/22 04/04/22 23:59 23:59 23:59 Intake Total 500 / 500 2187.5 / 2187.5 1100 / 1100 Output Total 200 / 200 Balance 500 / 300 1987.5 / 1987.5 1100 / 1100 Lab / Micro Data Result Diagrams: 04/04/22 04:30 04/03/22 06:30 Labs: Laboratory Results - last 24 hr 04/03/22 06:30: Hemoglobin A1c 5.4 04/04/22 04:30: Hgb 10.9 L, Hct 34.3 L Physical Exam Narrative GENERAL: cooperative HEENT: Atraumatic; normocephalic EYES; Anicteric, Normal Conjunctiva NECK; supple, normal thyroid, RESPIRATORY: Diminished to auscultation CARDIOVASCULAR: Regular S1 S2, GI: soft, normoactive bowel sounds, : No Renal angle tenderness; EXTREMITIES: No edema, no clubbing, MUSCULOSKELETAL: no muscle wasting NEURO: Awake; no lateralizing signs. SKIN: No Rash PSYCH; Flat affect Assessment & Plan Assessment/Plan (1) Acute lower gastrointestinal bleeding: PLAN: Plan Patient is a 76-year-old lady presented with bleeding per rectum 1. Acute lower GI bleed ? With high suspicion for diverticular bleed. Patient has been admitted to regular nursing floor as part of her management ordered CT of the abdomen and pelvis with contrast, H&H q. 6 hours and consultation placed to GI ? 04/03/2022; patient continues to experience bleeding per rectum. Patient was seen in consultation by Dr. Brito with GI his notes and recommendations reviewed -04/04/2022; Patient is scheduled to undergo colonoscopy by Dr. Frie 2. Anemia ? Secondary to acute blood loss anemia ? Hemoglobin on admission was 14.6 down to 10.2 we will continue with monitoring and transfuse if patient is deemed to be symptomatic or hemoglobin falls below 7 3. Recent hemorrhoidal surgery ? Stable 4. Hyperglycemia ? Patient fasting blood glucose was 148 patient is not a known diabetic ordered hemoglobin A1c 5. Class I obesity with BMI of 31 ? Weight loss advised 6. DVT prophylaxis ? Bilateral SCDs Time spent in the patient's overall evaluation,decision-making process, review of diagnostic data, adjustment of management, discussion with other providers, nursing nursing and ancillary staff involved in patient's care documentation, 55 Minutes Charges/Coding Visit Charges Inpatient E&M: 68855 Subs Hosp L3
[2022-04-04 10:21] LABS: Hematocrit 32.2 % (37-47); Hemoglobin 10.3 g/dL (12.0-15.0)
--- NOTE | 2022-04-04 10:45 | COLBX_PTH ---
PATIENT: PEGGY LINCOLN LOC: [facility] U#:[id number] AGE/SX: 76/F ROOM: [facility] RE04/02/[address]: Dr. Kirt Greenberg MD : 1945 BED: 1 DIS: 04/04/2022 SPEC #: [id number] RECD: 04/04/22 13:22 STATUS: AIDEN LIPSCOMBLeslie #: [id number] MICKEY: 04/04/22 10:[address]: Amish Brito DEPT: SURGICAL PATHOLOGY RECD BY: Estela Fisher ENTERED: 04/04/22 13:49 SP TYPE: COLON BX OTHR DR: MD Dr. Sonny Infante MD Dr. Rahsaan Friend, DO M Gregory Barton, PA Tissues: Sigmoid colon biopsy Procedures: Surgery Specimen Level IV Comments: @ Ordering doctor for SUIV edited from to @ by MAXIME at 04/04/22 153 @ Submitting doctor edited from to @ by CHRISOD at 04/04/22 153 HEADER OPERATION: Colonoscopy (MAC), electrohemostasis PRE-OP DIAGNOSIS: Acute lower GI bleeding TISSUE SUBMITTED: Sigmoid polyp biopsy MICROSCOPIC DIAGNOSIS Sigmoid colon polyp, biopsy: Fragments of tubular adenoma. AM:connor 04/05/2022 MICROSCOPIC DESCRIPTION Slides are reviewed. GROSS DESCRIPTION Received in fixative is one container labeled with the patient's name and designated sigmoid polyp biopsy. The specimen consists of two irregular fragments of light oneal soft tissue that in aggregate measure 0.6 x 0.3 x 0.1 cm. The specimen is totally submitted in one cassette. / SJ:connor 04/04/2022 TC:5 [facility]: [id number]
[2022-04-04] MEDS: Lactated Ringers 1,000 ML 15 ML IV (11:20)
--- NOTE | 2022-04-04 13:08 | OP.COLON_ITS ---
Patient Name: Jillian Murdock Procedure Date: 04/04/2022 12:23 PM Date of : 1945 Age: 76 Procedure: Colonoscopy Indications: Hematochezia Providers: Amish Brito DO Medicines: Monitored Anesthesia Care Patient Profile: Last Colonoscopy: 3 years ago. Complications: No immediate complications. Procedure: Pre-Anesthesia Assessment: - Prior to the procedure, a History and Physical was performed, and patient medications and allergies were reviewed. The patient is competent. The risks and benefits of the procedure and the sedation options and risks were discussed with the patient. All questions were answered and informed consent was obtained. Patient identification and proposed procedure were verified by the physician in the pre-procedure area. Mental Status Examination: alert and oriented. Airway Examination: normal oropharyngeal airway and neck mobility. Respiratory Examination: clear to auscultation. CV Examination: normal. Prophylactic Antibiotics: The patient does not require prophylactic antibiotics. Prior Anticoagulants: The patient has taken no previous anticoagulant or antiplatelet agents. ASA Grade Assessment: II - A patient with mild systemic disease. After reviewing the risks and benefits, the patient was deemed in satisfactory condition to undergo the procedure. The anesthesia plan was to use monitored anesthesia care (MAC). Immediately prior to administration of medications, the patient was re-assessed for adequacy to receive sedatives. The heart rate, respiratory rate, oxygen saturations, blood pressure, adequacy of pulmonary ventilation, and response to care were monitored throughout the procedure. The physical status of the patient was re-assessed after the procedure. After I obtained informed consent, the scope was passed under direct vision. Throughout the procedure, the patient's blood pressure, pulse, and oxygen saturations were monitored continuously. The colonoscope was introduced through the anus and advanced to the cecum, identified by appendiceal orifice and ileocecal valve. The colonoscopy was performed without difficulty. The patient tolerated the procedure well. The quality of the bowel preparation was good. Scope In: 12:29:36 PM Scope Withdrawal Time 0 hours 15 minutes 1 second Scope Out: 12:47:52 PM Total Procedure Duration Time 0 hours 18 minutes 16 seconds Findings: The perianal and digital rectal examinations were normal. A single (solitary) ten mm ulcer was found in the rectum. This ulcer is secondary to previous hemorrhoidectomy surgery. Oozing was present. Stigmata of recent bleeding were present. Coagulation for hemostasis using argon plasma at 0.3 liters/minute and 30 chen was successful. Estimated blood loss was minimal. Multiple small and large-mouthed diverticula were found in the recto-sigmoid colon, sigmoid colon and descending colon. A single medium-sized localized angiodysplastic lesion with bleeding on contact was found in the ascending colon. Coagulation for bleeding prevention using heater probe was successful. A 7 mm polyp was found in the transverse colon. The polyp was sessile. The polyp was removed with a cold snare. Resection and retrieval were complete. Verification of patient identification for the specimen was done. Estimated blood loss was minimal. Impression: - A single (solitary) ulcer in the rectum. Treated with argon plasma coagulation (APC). - Diverticulosis in the recto-sigmoid colon, in the sigmoid colon and in the descending colon. - A single colonic angiodysplastic lesion. Treated with a heater probe. - One 7 mm polyp in the transverse colon, removed with a cold snare. Resected and retrieved. Recommendation: - Repeat colonoscopy in 5 years for surveillance. - Continue present medications. Procedure Code(s): --- Professional --- 34765, 59, Colonoscopy, flexible; with control of bleeding, any method 85306, Colonoscopy, flexible; with removal of tumor(s), polyp(s), or other lesion(s) by snare technique CPT copyright 2017 [employer]. All rights reserved. The codes documented in this report are preliminary and upon morning show host review may be revised to meet current compliance requirements. Amish Brito DO 04/04/2022 1:08:27 PM This report has been signed electronically. Number of Addenda: 0 Note Initiated On: 04/04/2022 12:23 PM
--- NOTE | 2022-04-04 13:09 | OP.CCLET_ITS ---
04/04/2022 Eduin Aguilar Re : Colonoscopy procedure for Jillian Murdock Dear Jeff This procedure was performed on March. My impressions and recommendations are as follows: Impressions : - A single (solitary) ulcer in the rectum. Treated with argon plasma coagulation (APC). - Diverticulosis in the recto-sigmoid colon, in the sigmoid colon and in the descending colon. - A single colonic angiodysplastic lesion. Treated with a heater probe. - One 7 mm polyp in the transverse colon, removed with a cold snare. Resected and retrieved. Recommendations : - Repeat colonoscopy in 5 years for surveillance. - Continue present medications. My findings are described in the full procedure note, which is enclosed. If I can be of further assistance, please feel free to contact me at . Sincerely, Amish Brito, 04/04/2022 1:08:27 PM This report has been signed electronically.
--- NOTE | 2022-04-04 14:09 | PCM.DC.SUM ---
Providers Date of Admission: 04/02/22 Primary Care Physician: SANDY Spencer Consultations 04/02/22 13:41 Consult: Gastroenterology Routine Consulting Provider: Amish Brito Reason for Consult: [facility] EMERGENT Consult: No MD Notified: Yes Date Notified: 04/02/22 Time Notified: 06:35 Method of Notification: ED Physician Initiated Reason For Visit: ACUTE GI BLEED Diagnosis Discharge Diagnosis (1) Acute lower gastrointestinal bleeding: Status: Acute Code(s): K92.2 - Gastrointestinal hemorrhage, unspecified Plan Patient is a 76-year-old lady presented with bleeding per rectum 1. Acute lower GI bleed ? With high suspicion for diverticular bleed. Patient has been admitted to regular nursing floor as part of her management ordered CT of the abdomen and pelvis with contrast, H&H q. 6 hours and consultation placed to GI ? 04/03/2022; patient continues to experience bleeding per rectum. Patient was seen in consultation by Dr. Brito with GI his notes and recommendations reviewed -04/04/2022; Patient is scheduled to undergo colonoscopy by Dr. Brito -Results of patient colonoscopy as well as recommendation as below Impressions : - A single (solitary) ulcer in the rectum.? Treated with argon plasma ?coagulation (APC). - Diverticulosis in the recto-sigmoid colon, in the sigmoid colon and in the ?descending colon. - A single colonic angiodysplastic lesion.? Treated with a heater probe. - One 7 mm polyp in the transverse colon, removed with a cold snare.? Resected ?and retrieved. Recommendations : - Repeat colonoscopy in 5 years for surveillance. - Continue present medications. 2. Anemia ? Secondary to acute blood loss anemia ? Hemoglobin on admission was 14.6 down to 10.2 we will continue with monitoring and transfuse if patient is deemed to be symptomatic or hemoglobin falls below 7 3. Recent hemorrhoidal surgery ? Stable 4. Hyperglycemia ? Patient fasting blood glucose was 148 patient is not a known diabetic ordered hemoglobin A1c 5. Class I obesity with BMI of 31 ? Weight loss advised 6. DVT prophylaxis ? Bilateral SCDs Time spent in the patient's overall evaluation,decision-making process, review of diagnostic data, adjustment of management, discussion with other providers, nursing nursing and ancillary staff involved in patient's care documentation, 35 Minutes Medications at Discharge Home Medications docusate sodium 100 mg capsule (Stool Softener) 200 mg PO DAILY constipation 02/07/23 guar gum 1 tbsp PO DAILY stool 04/02/22 lactobacillus combination no.4 3 billion cell capsule (Probiotic) 30,000,000 cell PO DAILY PROBIOTIC 04/02/22 magnesium oxide 400 mg PO DAILY supplement 04/02/22 Hospital Course Summary of Care Provided Minutes Spent on Discharge: 35 Physical Exam Narrative GENERAL: cooperative HEENT: Atraumatic; normocephalic EYES; Anicteric, Normal Conjunctiva NECK; supple, normal thyroid, RESPIRATORY: Diminished to auscultation CARDIOVASCULAR: Regular S1 S2, GI: soft, normoactive bowel sounds, : No Renal angle tenderness; EXTREMITIES: No edema, no clubbing, MUSCULOSKELETAL: no muscle wasting NEURO: Awake; no lateralizing signs. SKIN: No Rash PSYCH; Flat affect Weight / BMI Weight Weight: 82.463 kg Body Mass Index (BMI) 31.1 ABG / Lab / Microbiology Data Result Diagrams: 04/04/22 10:12 04/03/22 06:30 Laboratory: Laboratory Results - last 24 hr 04/04/22 04:30: Hgb 10.9 L, Hct 34.3 L 04/04/22 10:12: Hgb 10.3 L, Hct 32.2 L D/C Instructions Discharge Diet: No restrictions Discharge Activity: Return to Normal Activity Call your doctor if you observe: Fever of 101 or Higher, Shortness of breath, Fainting spells and Chest pain Meaningful Use Info Meaningful Use Diagnoses (Choose all that apply): None applicable Discharge Plan Admission Admit Date/Time: 04/02/22 06:27 Attending Provider: Kirt Greenberg Primary Care Provider: Eduin Aguilar Consulting Providers: Amish Brito Joseph Discharge Orders/Prescriptions Prescriptions: Continued guar gum Packet 1 tbsp PO DAILY Rx Instructions: mix into at least 4 oz water or juice before administering docusate sodium [Stool Softener] 100 mg Capsule 200 mg PO DAILY Probiotic 3 billion cell Capsule 30,000,000 cell PO DAILY magnesium oxide 400 mg magnesium Tablet 400 mg PO DAILY Discontinued Bio Cleanse 1 tablet PO/SL DAILY Referrals / Follow Up: Amish Brito DO [Med Staff - Active Staff] - Within 2 Weeks Eduin Aguilar PA [Primary Care Provider] - In 1 Week Disposition Disposition (needs filled in before D/C Order can be placed): Home, Self Care Charges/Coding Visit Charges Inpatient E&M: 71408 Disch Hosp >30min
== END 2022-04-04 17:04 | disposition home or self-care (01) | DRG 393 ==
LOC: ED 06:30 → MS2 13:24 → PCU 04-03 18:34
PROVIDERS: Internal Medicine Gastroenterology; Admitting Provider Hospitalist; Emergency Provider Emergency Medicine; PCP Physician Assistant; Visit Provider Internal Medicine
PROC: 0DJD8ZZ Inspection of Lower Intestinal Tract, Via Natural or Artificial Opening Endoscopic (ICD-10-PCS; CPT 45378; principal; 2022-04-04 10:40)
DX: K62.6 Ulcer of anus and rectum (principal); K57.31 Diverticulosis of large intestine without perforation or abscess with bleeding; K55.21 Angiodysplasia of colon with hemorrhage; D62 Acute posthemorrhagic anemia; K63.5 Polyp of colon; R73.9 Hyperglycemia, unspecified; Z66 Do not resuscitate; E66.9 Obesity, unspecified; Z68.31 Body mass index [BMI] 31.0-31.9, adult
CPT/HCPCS: 36415; 74174; 80048; 83036; 85014; 85018; 85025; 88305; 93005; 97802; 99285; J7030; J7120; Q9967; J2405

== ENCOUNTER 2022-07-23 09:14 | Observation (INO) | payer MEDICARE, SELFPAY ==
[2022-07-23 09:16] VITALS: BP 187/98; PULSE 81; RESP 16; TEMP 36.7; O2SAT 98; BMI 31.8
--- NOTE | 2022-07-23 09:27 | CT_ITS ---
STUDY: CT ABDOMEN AND PELVIS WITH CONTRAST REASON FOR EXAM: Female, 76 years old. Localized peritonitis left lower quadrant RADIATION DOSAGE (If Supplied By Facility): CTDIvol = ( 16.01 ) mGy, DLP = ( 1118.18 ) mGycm TECHNIQUE: Transaxial images were obtained from the dome of the diaphragm to the symphysis pubis without oral contrast. IV 100mL Isovue-300 was administered. Sagittal and coronal images were reconstructed. Individualized dose optimization techniques were used for this CT. COMPARISON: Comparison is made with prior study dated December 17, 2020 FINDINGS: Mild degree of linear dependent bibasilar atelectasis. Coronary artery calcification. There is decreased attenuation of the liver consistent with steatosis. Normal gallbladder and extrahepatic biliary system. Normal spleen. Normal pancreas. Normal bilateral adrenal glands. Normal right kidney. Normal left kidney. There is a small hiatal hernia. Normal small intestine. There is diverticulosis, with thickening of the colon wall, and pericolonic inflammation changes consistent with acute diverticulitis. There is non-visualization of the appendix. There is scattered atherosclerotic calcification of the abdominal aorta, without a demonstrated aneurysm. Normal inferior vena cava. Normal retroperitoneum. There is evidence of a cystocele. There is absence of the uterus consistent with a prior hysterectomy. Normal abdominal wall. There are diffuse degenerative changes of the visualized lumbar spine. CT/Abdomen/Pelvis W IV Cont ONLY IMPRESSION: Sigmoid diverticulosis and a mild degree of localized sigmoid diverticulitis without fluid or abscess formation. Status post hysterectomy with evidence of a cystocele. Fatty infiltration of the liver. Electronically Signed: Oswald García MD at 11:20 EDT ,
--- NOTE | 2022-07-23 09:40 | ED.VIS.GI ---
HPI HPI - GI History of Present Illness Chief Complaint: Abd Pain Detail of Chief Complaint: Left lower quadrant pain after coughing Informant: patient Abdominal Pain/Flank Pain Onset: Yesterday Context: Sudden Onset Timing: Continuous Quality: Aching Location: LLQ Current Severity: Mild Maximum Severity: Severe Worsened by: Car ride and Movement Relieved by: Nothing Nausea/Vomiting/Emesis GI Symptom: Positive for Nausea; Negative for Vomiting Diarrhea/Melena/Hematochezia GI Symptom: Negative for Diarrhea, Melena or Hematochezia Associated Symptoms Associated Symptoms: Positive for Urgency; Negative for Dysuria, Frequency or Hematuria LMP: Postmenopausal Narrative Narrative: Patient is a 76-year-old woman with history of diverticulosis, diverticular bleed and polypectomy. The polypectomy was performed by Dr. Brito and the diverticular bleed was treated by Dr. Brito. She denies history of diverticulitis. She has had some trouble with bowel movements recently. She informed that she had hemorrhoid surgery at [facility]. The diverticular bleed and polypectomy was performed afterwards. She denies fever, chills night sweats. She denies HEENT, cardiac or respiratory symptoms. She does report left lower quadrant pain. This is occurred after coughing in the past. She has not noted a bulge or mass. She states normally it goes away shortly after she coughs. She does endorse urgency without dysuria, frequency or hematuria. She denies history of renal ureterolithiasis. She denies flank pain. She denies vaginal bleeding. She denies bruising easily. She is not on an antithrombotic or anticoagulant. Prior similar symptoms: Yes Recent Illness/Hospitalization: Yes [facility] Medical History Diverticulosis Fracture, ankle GERD (gastroesophageal reflux disease) Rectal ulcer Home Medications docusate sodium 100 mg capsule (Stool Softener) 100 mg PO DAILY constipation 04/02/22 [History Last Taken 07/22/22] lactobacillus combination no.4 3 billion cell capsule (Probiotic) 30,000,000 cell PO DAILY PROBIOTIC 04/02/22 [History Last Taken 07/22/22] magnesium oxide 400 mg PO DAILY supplement 04/02/22 [History Last Taken 07/22/22] guar gum 1 tbsp PO DAILY 07/23/22 [History Last Taken 07/22/22] Allergy/AdvReac Type Severity Reaction Status Date / Time nitrofurantoin Allergy Upset Verified 07/23/22 09:15 [From Macrobid] Stomach Sulfa (Sulfonamide Allergy Upset Verified 07/23/22 09:15 Antibiotics) Stomach sulfamethoxazole Allergy Upset Verified 07/23/22 09:15 [From Bactrim] Stomach sunflower seed Allergy Upset Verified 07/23/22 09:15 Stomach trimethoprim [From Bactrim] Allergy Upset Verified 07/23/22 09:15 Stomach Family History Mother Asthma Surgical History H/O hemorrhoidectomy Hx of hysterectomy Social History (Updated 07/23/22 @ 09:[address] Josue Guadalupe MD) household members: none Smoking Status: Never smoker substance use type: does not use ROS ROS ED Constitutional Constitutional ED: Denies chills, fever(s), subjective, sweats or weight loss ENT ENT ED: Denies ear pain, rhinorrhea or sore throat Cardiovascular Cardiovascular: Denies chest pain or palpitations Respiratory/Chest Respiratory/Chest: Denies cough, dyspnea or dyspnea on exertion Gastrointestinal Gastrointestinal: Reports abdominal pain and nausea; Denies constipation, diarrhea, melena or vomiting Genitourinary Genitourinary ED: Reports urinary frequency; Denies dysuria or hematuria Musculoskeletal Musculoskeletal: Denies arthralgias, back pain, myalgias or neck pain Integumentary Denies rash Neurologic Neurologic: Denies headache(s) or paresthesias Psychiatric Psychiatric: Denies anxiety Endocrine Endocrinology: Denies polydipsia, polyphagia or polyuria Hematologic/Lymphatic Hematologic/Lymphatic: Denies easy bleeding or easy bruising EXAM Physical Exam Const Vital Signs: 07/23/22 09:16 Temperature 98.1 F Temperature Source Temporal Pulse Rate 81 Respiratory Rate 16 Blood Pressure 187/98 H Blood Pressure Mean 127 Pulse Ox 98 Oxygen Delivery Method Room Air Positive well nourished, well developed and obese Constitutional Narrative: Patient appears uncomfortable. General Appearance ED: well developed; Negative for NAD Nutritional Appearance: obese HEENT Reports TM's clear and dry mucous membranes normocephalic and atraumatic Tympanic Membrane ED: Yes TM's clear Mouth ED: Yes dry mucous membranes Mouth: dry mucous membranes Eyes PERRL and EOMs intact bilaterally General Eye ED: Negative for pale conjunctiva or scleral icterus Neck no lymphadenopathy, supple and no JVD Resp normal respiratory effort and clear to auscultation bilaterally Cardio regular rate, regular rhythm, S1 normal heart sound, S2 normal heart sound and no murmurs GI no masses; Negative for non-tender or non-distended Inspection: abdominal distention Auscultation: hypoactive bowel sounds Palpation: soft, tender LLQ and LUQ, guarding LLQ and rebound tenderness present other (Left lower quadrant); Negative for rigid, hepatomegaly, splenomegaly, hernia, mass or pulsatile mass Narrative: No evidence of inguinal hernia. Back/Spine no CVA tenderness Cervical Spine: Negative for cervical spine tenderness Thoracic Spine / Upper Back: Negative for thoracic spinal tenderness Lumbar Spine / Lower Back: Negative for lumbar spinal tenderness Neuro CN's II-XII intact bilaterally and moves all extremities Sensorium / Orientation: alert Psych mental status grossly normal Skin no wounds General Skin Exam: Negative for jaundice Lesions: no lesions Rashes: no rashes MDM MDM MDM Narrative Medical decision making narrative: With history of diverticulosis and difficulty with bowel movements and left lower quadrant pain with peritoneal findings suspect patient has diverticulitis need to evaluate for perforation, malignancy. With complaint of urgency suspect this is due to peritoneal irritation and doubt ureterolithiasis or urinary tract infection. Because patient has peritoneal findings 4.5 g of Zosyn was ordered. Appropriate blood work was ordered to assess white count, differential, renal function, electrolytes etc. CT of the abdomen and pelvis with IV contrast was ordered. Patient does not have history of allergy to penicillin. There is a history of allergy to sulfa. She also has reported allergy to nitrofurantoin. These are not allergies they are adverse symptoms. Records for admission for diverticular bleed was reviewed. Prior labs were reviewed. History & Record Review Additional record(s) reviewed:: Prior inpatient record, Prior outpatient record, Prior ED visit and Prior labs Lab Data Attestation: I reviewed the patient's lab results. Lab results narrative: CBC is unremarkable. Basic metabolic panel was glucose 117 with normal CO2 anion gap. Creatinine is 0.7 with a GFR of 86. Lactate normal urine Alysis reveals positive leuk esterase with negative blood and nitrites. There is bacteria without pyuria. Therefore, culture was sent. Labs: Laboratory Results - last 24 hr 07/23/22 07/23/22 07/23/22 09:55 09:55 09:55 WBC 8.9 RBC 4.87 Hgb 13.9 Hct 44.4 MCV 91.2 MCH 28.5 MCHC 31.3 L RDW Std Deviation 46.5 H RDW Coeff of Flash 13.8 Plt Count 270 MPV 9.4 Immature Gran % (Auto) 0.600 Neut % (Auto) 68.6 Lymph % (Auto) 16.2 L [place] % (Auto) 11.8 H Eos % (Auto) 2.0 Baso % (Auto) 0.8 Absolute Neuts (auto) 6.1 Absolute Lymphs (auto) 1.44 Nucleated RBC % 0 Sodium 140 Potassium 3.5 Chloride 106 Carbon Dioxide 29.0 Anion Gap 5 BUN 13 Creatinine 0.70 Estim Creat Clear Calc 40.68 Est GFR (MDRD) Af Amer 104 Est GFR (MDRD) Non-Af 86 BUN/Creatinine Ratio 18.6 Glucose 117 H Lactic Acid 0.8 Calcium 8.8 Urine Color Urine Clarity Urine pH Ur Specific [place] Urine Protein Urine Glucose (UA) Urine Ketones Urine Occult Blood Urine Nitrite Urine Bilirubin Urine Urobilinogen Ur Leukocyte Esterase Urine RBC Urine WBC Ur Squamous Epith Cells Urine Bacteria Urine Mucus 07/23/22 10:31 WBC RBC Hgb Hct MCV MCH MCHC RDW Std Deviation RDW Coeff of Flash Plt Count MPV Immature Gran % (Auto) Neut % (Auto) Lymph % (Auto) [place] % (Auto) Eos % (Auto) Baso % (Auto) Absolute Neuts (auto) Absolute Lymphs (auto) Nucleated RBC % Sodium Potassium Chloride Carbon Dioxide Anion Gap BUN Creatinine Estim Creat Clear Calc Est GFR (MDRD) Af Amer Est GFR (MDRD) Non-Af BUN/Creatinine Ratio Glucose Lactic Acid Calcium Urine Color Straw Urine Clarity Sl. Cloudy Urine pH 8.0 Ur Specific [place] 1.015 Urine Protein Negative Urine Glucose (UA) Normal Urine Ketones Negative Urine Occult Blood Negative Urine Nitrite Negative Urine Bilirubin Negative Urine Urobilinogen Normal Ur Leukocyte Esterase 100 H Urine RBC 0 SEEN Urine WBC 0-5 SEEN Ur Squamous Epith Cells 0-5 SEEN Urine Bacteria 1+ Urine Mucus 0 SEEN Radiography Diagnostic Testing: Clinical Impression(s) from Imaging Studies Abdomen/Pelvis CT 07/23/22 09:27 IMPRESSION: Sigmoid diverticulosis and a mild degree of localized sigmoid diverticulitis without fluid or abscess formation. Status post hysterectomy with evidence of a cystocele. Fatty infiltration of the liver. Electronically Signed: Oswald García MD at 11:20 EDT , Management Discussion w/another healthcare provider: Hospitalist (Dr. Robles was made aware of patient's history, physical and treatment. Since patient has a normal white count she was made observation status to medical surgical floor.) Treatment and Re-Evaluation :: Patient was asked at 1002 if her pain had improved. I was informed that she had not received her pain medicine. We will reassess in 30 to 45 minutes. Patient was reassessed at 1131. Patient states her pain is better. On reexamination she still has peritoneal findings. Even though she has a normal white count since she does have localized peritonitis due to diverticulitis hospitalist been paged for 23 observation versus full admission. Discharge Plan Dx/Rx/DC Orders Clinical Impression: Sigmoid diverticulitis, Localized peritonitis Disposition Disposition: Acute Care Hospital [facility]
[2022-07-23 10:01] LABS: Absolute Lymphocyte Count 1.44 X10^3/uL (0.83-4.51); Absolute Neutrophil Count 6.1 X10^3/uL (2.0-7.7); Basophil# 0.07 X10^3/uL; Basophil% 0.8 % (0-1); Eosinophil# 0.18 X10^3/uL; Hematocrit 44.4 % (37-47); Hemoglobin 13.9 g/dL (12.0-15.0); Lymphocyte # 1.44 X10^3/ul (0.83-4.51); Lymphocyte % 16.2 % (19-41); Mean Corp Hgb Conc 31.3 g/dL (32-36); Mean Corpuscular Hgb 28.5 pg (27.0-32.0); Mean Corpuscular Volume 91.2 fL (81-99); Mean Platelet Vol. 9.4 fl (6.2-12.0); Monocyte# 1.05 X10^3/uL; Monocyte% 11.8 % (0-10); NRBC Flagged by Analyzer 0 % (0-5); Neutrophil # 6.08 X10^3/uL (2.7-7.7); Neutrophil % 68.6 % (47-70); Platelet Count 270 K/mm3 (150-450); RBC Distribution Width CV 13.8 % (11.6-14.6); RBC Distribution Width SD 46.5 fl (35.1-43.9); Red Blood Count 4.87 M/mm3 (4.2-5.4); White Blood Count 8.9 K/mm3 (4.4-11.0)
[2022-07-23] MEDS: 0.9% Normal Saline 1,000 ML 125 ML IV ×3 (10:05→22:50)
[2022-07-23] MEDS: Morphine 4 MG/ML Syringe IV (10:06)
[2022-07-23] MEDS: Ondansetron 4 MG/2 ML Vial IV (10:06)
--- NOTE | 2022-07-23 10:16 | ED.RN ---
hmg 4.1 DR IVERSON
[2022-07-23 10:19] LABS: Anion Gap 5 (5-15); BUN 13 mg/dL (7-18); BUN/Creat Ratio 18.6 RATIO (10-20); Calcium,Total 8.8 mg/dL (8.5-10.1); Chloride 106 mmol/L (98-107); EST Glomerular Filtration Rate 86 mL/min (>60); Est Glom Filt Rate - Afr Amer 104 mL/min (>60); Estimated Creatinine Clearance 40.68 ml/min; Glucose 117 mg/dL (74-106); Potassium 3.5 mmol/L (3.5-5.1); Sodium Level 140 mmol/L (136-145)
[2022-07-23 10:30] LABS: Lactic Acid 0.8 mmol/L (0.4-1.9)
[2022-07-23 10:37] LABS: Mucous, Urine 0 SEEN /hpf (<or=2+); Red Blood Cells-Urine 0 SEEN /hpf (0-5)
[2022-07-23 10:41] LABS: Color, Urine Straw (Yellow); Glucose, Dipstick Normal (Normal); Ketone-Dipstick Negative (Negative); Leukocyte Esterase-Dipstick 100 /ul (Negative); Nitrite-Dipstick Negative (Negative); Occult Blood-Urine Negative /ul (Negative); Protein-Dipstick Negative (Negative); Specific Gravity, Urine 1.015 (1.002-1.030); Urine Bilirubin Dipstick Negative (Negative); Urine Clarity Sl. Cloudy (Clear); Urine Urobilinogen Normal (Normal)
[2022-07-23 10:52] LABS: Bacteria 1+ /hpf (None Seen); Squamous Epithelial Cells - UA 0-5 SEEN /hpf (5-10); White Blood Cells 0-5 SEEN /hpf (0-5)
--- NOTE | 2022-07-23 11:48 | NURSING ---
DR ALVARADO FOR DR TOWNSEND
--- NOTE | 2022-07-23 11:51 | PCM.HP.STD ---
HPI - General General Date of Admission: 07/23/22 Date of Service: 07/23/22 Chief Complaint: LLQ pain, nausea. HPI Narrative The patient is a 76 y/o F w/ PMHx: Obesity, GERD, Hx Rectal Ulcer, Hx Diverticulosis who presents to the [facility] ED on 07/23/22 with history of initially discomfort Friday late evening following intake of several sweet food items and graduation picnic items she normally does not eat with general discomfort and ache but no severe pain or any nausea or emesis which persisted until yesterday which she initially noted had been improved in the morning but eventually she unfortunately sneezed and following this she felt a weird pulling sensation in the left lower quadrant and since then she had continuous ongoing aching, mild to moderate 4-6 out of 10 in severity discomfort although worse with palpation and worse with any activity specifically noting the car ride over with no nausea, emesis but ongoing general malaise prompting eventual ED evaluation. Patient does have some chronic issues with urgency and does have evidence on the CT scan of the cystocele. She denies any dysuria, frequency or hematuria. Patient denies usage of any anticoagulation or antiplatelet therapy. Work-up in the ED included T98.1, heart rate 81, BP 187/98, respiratory rate 16, 98% room air, CBC with WC 8.9, human 13.9, platelet 270 without marked shift, BMP unremarkable aside glucose 117, lactic acid 0.8, urinalysis not marked appearing except leukocyte Estrace 100 but negative nitrite and no marked urine RBCs or marked WBCs, 1+ urine bacteria, CT abdomen pelvis with sigmoid diverticulosis and a mild degree of localized sigmoid diverticulitis without fluid or abscess formation, evidence status post hysterectomy and evidence of a cystocele, fatty infiltration of the liver. In the ED patient ministered normal saline maintenance IV fluid, morphine 4 mg IV x1, Zofran 4 mg IV x1 and Zosyn IV antibiotic regimen. [facility] Medical History (Updated 07/23/22 @ 11:[address] Nanette Robles MD) Diverticulosis Fracture, ankle GERD (gastroesophageal reflux disease) History of GI bleed Obesity Rectal ulcer Home Medications docusate sodium 100 mg capsule (Stool Softener) 100 mg PO DAILY constipation 04/02/22 [History Last Taken 07/22/22] lactobacillus combination no.4 3 billion cell capsule (Probiotic) 30,000,000 cell PO DAILY PROBIOTIC 04/02/22 [History Last Taken 07/22/22] magnesium oxide 400 mg PO DAILY supplement 04/02/22 [History Last Taken 07/22/22] guar gum 1 tbsp PO DAILY 07/23/22 [History Last Taken 07/22/22] Allergy/AdvReac Type Severity Reaction Status Date / Time nitrofurantoin Allergy Upset Verified 07/23/22 09:15 [From Macrobid] Stomach Sulfa (Sulfonamide Allergy Upset Verified 07/23/22 09:15 Antibiotics) Stomach sulfamethoxazole Allergy Upset Verified 07/23/22 09:15 [From Bactrim] Stomach sunflower seed Allergy Upset Verified 07/23/22 09:15 Stomach trimethoprim [From Bactrim] Allergy Upset Verified 07/23/22 09:15 Stomach Family History Mother Asthma other (Father age 92 with no marked medical history including HD, DM, CA.) Surgical History H/O hemorrhoidectomy Hx of hysterectomy Social History (Updated 07/23/22 @ 12:[address] Nanette Robles MD) household members: none current occupational status: employed current occupation: [employer], retired from [employer]. Smoking Status: Never smoker alcohol intake: never substance use type: does not use ROS ROS Narrative Admission Review of Systems: CONSTITUTIONAL: No weight loss, fever, chills, + weakness or fatigue. HEENT: Eyes: No visual loss, blurred vision, double vision or yellow sclerae. Ears, Nose, Throat: No hearing loss, sneezing, congestion, runny nose or sore throat. SKIN: No rash or itching, lesions, wounds. CARDIOVASCULAR: No chest pain, chest pressure or chest discomfort, palpitations, edema, orthopnea, syncopal events. RESPIRATORY: No shortness of breath, cough or sputum, wheezing, hemoptysis. GASTROINTESTINAL: + anorexia, abdominal pain. No nausea, vomiting or diarrhea, melena, BRBPR. GENITOURINARY: No dysuria, frequency, urgency or retention. NEUROLOGICAL: No headache, dizziness, syncope, paralysis, ataxia, numbness or tingling in the extremities, focal weakness, change in bowel or bladder control, seizure. MUSCULOSKELETAL: No muscle, back pain, joint pain or stiffness. HEMATOLOGIC: No anemia, bleeding or bruising. LYMPHATICS: No enlarged nodes. No history of splenectomy. PSYCHIATRIC: No history of depression or anxiety. ENDOCRINOLOGIC: No reports of sweating, cold or heat intolerance. No polyuria or polydipsia. ALLERGIES: No history of asthma, hives, eczema or rhinitis. Vital Signs Vital Signs Vital Signs: 07/23/22 09:16 Temperature 98.1 F Temperature Source Temporal Pulse Rate 81 Respiratory Rate 16 Blood Pressure 187/98 H Blood Pressure Mean 127 Pulse Ox 98 Oxygen Delivery Method Room Air Weight Weight: 185 lb 11.2 oz Body Mass Index (BMI) 31.8 Physical Exam Narrative Physical Examination: General: Awake, alert, oriented x 3 and cooperative, seated upright in the ED bed, pain improved with recent medications although worse with any palpation or movement. Skin: Normal color, normal turgor, no icterus, no cyanosis. HEENT: AT/NC, EOMI, PERRLA, mildly dry MM, no carotid bruits or JVD noted. Lungs: CTA bilaterally, moderate effort, mild decrease BL bases, no rales, ronchi or wheezing. Heart: Regular rate and rhythm; no gallop, rub audible. Abdomen: Soft, discomfort to the left lower quadrant evident with some voluntary guarding and mild rebound, appears mildly distended, mildly hyperactive bowel sounds, no obvious HSM but difficult given pain upon evaluation. Extremities: No cyanosis, clubbing, or edema. Neurological: Patient awake, alert, oriented as noted, cognitive function intact; pupils equally reactive to light and accommodation, cranial nerves II-XII grossly normal, moving all 4 extremities, no focal deficits, strength moderately global decrease secondary to acute presentation complaints Psychiatric: Affect appears fatigued and somewhat uncomfortable especially following evaluation, discussed her life including unfortunately the of her son 19 years ago and she was very transiently tearful but improved following discussions otherwise no acute evidence of anxiety or depressive feelings. Results Lab / Micro Data Result Diagrams: 07/23/22 09:55 07/23/22 09:55 Labs: Laboratory Results - last 24 hr 07/23/22 09:55: WBC 8.9, RBC 4.87, Hgb 13.9, Hct 44.4, MCV 91.2, MCH 28.5, MCHC 31.3 L, RDW Std Deviation 46.5 H, RDW Coeff of Flash 13.8, Plt Count 270, MPV 9.4, Immature Gran % (Auto) 0.600, Neut % (Auto) 68.6, Lymph % (Auto) 16.2 L, [place] % (Auto) 11.8 H, Eos % (Auto) 2.0, Baso % (Auto) 0.8, Absolute Neuts (auto) 6.1, Absolute Lymphs (auto) 1.44, Nucleated RBC % 0 07/23/22 09:55: Sodium 140, Potassium 3.5, Chloride 106, Carbon Dioxide 29.0, Anion Gap 5, BUN 13, Creatinine 0.70, Estim Creat Clear Calc 40.68, Est GFR (MDRD) Af Amer 104, Est GFR (MDRD) Non-Af 86, BUN/Creatinine Ratio 18.6, Glucose 117 H, Calcium 8.8 07/23/22 09:55: Lactic Acid 0.8 07/23/22 10:31: Urine Color Straw, Urine Clarity Sl. Cloudy, Urine pH 8.0, Ur Specific [employer] [place] 1.015, Urine Protein Negative, Urine Glucose (UA) Normal, Urine Ketones Negative, Urine Occult Blood Negative, Urine Nitrite Negative, Urine Bilirubin Negative, Urine Urobilinogen Normal, Ur Leukocyte Esterase 100 H, Urine RBC 0 SEEN, Urine WBC 0-5 SEEN, Ur Squamous Epith Cells 0-5 SEEN, Urine Bacteria 1+, Urine Mucus 0 SEEN Radiology Impression Abdomen/Pelvis CT 07/23/22 09:27 IMPRESSION: Sigmoid diverticulosis and a mild degree of localized sigmoid diverticulitis without fluid or abscess formation. Status post hysterectomy with evidence of a cystocele. Fatty infiltration of the liver. Electronically Signed: Oswald García MD at 11:20 EDT , Assessment & Plan Assessment/Plan (1) Sigmoid diverticulitis: (2) Localized peritonitis: PLAN: Plan The patient is a 76 y/o F w/ PMHx: Obesity, GERD, Hx Rectal Ulcer, Hx Diverticulosis who presents to the [facility] ED on 07/23/22 with history of ongoing left lower quadrant discomfort starting the day prior reported as continuous and aching, ranging from mild to severe, worsened by movement especially on the car ride over with nausea but no emesis related nor any diarrhea recently also worse if she coughs prompting eventual ED evaluation. #1. Acute Sigmoid Diverticulitis w/ localized peritonitis: CT abdomen pelvis with sigmoid diverticulosis and a mild degree of localized sigmoid diverticulitis without fluid or abscess formation. Will admit to [facility], maintain on hydration, monitor I&Os, maintain NPO status w/ bowel rest, treat with zosyn regimen, IV PPI, anti-emetics, pain regimen PRN. Consider diet advancement to clears in AM if clinically improved. Discussed that if she had a reoccurrence that she may need to see general surgery for more definitive intervention. #2. Elevated BP without HTN: Patient upon ED presentation with notably elevated blood pressure with no previous history, likely related with pain however will continue closely monitor it and if becomes consistent with hypertension will initiate oral regimen, as needed IV hydralazine in interim. #3. Obesity: Weight loss and lifestyle changes encouraged. #4. GERD: We will maintain on IV PPI given presentation as noted. #5. History GI bleed: Patient with history of diverticular bleed, IV PPI as noted. #6. DVT prophylaxis: SCDs given history of diverticular bleed in this acute setting. #7. CODE status: Patient HCPOA and healthcare per of sports attorney are not in place. She is interested in discussed that she could discuss these matters with case management/social work for more information. Discussed CODE status at length and she is amenable to full CODE STATUS at this time. Admission Evaluation Time spent evaluating chart, patient history, patient evaluation, care planning and discussion with specialists: 55 minutes. Charges/Coding Visit Charges Inpatient E&M: 86022 Init Hosp L2
--- NOTE | 2022-07-23 12:03 | NURSING ---
MED SURG OBS WHITE LOCALIZED PERITONITIS DUE TO SIGMOID DIVERTICULITIS
[2022-07-23 13:02] VITALS: BP 124/68; PULSE 72; RESP 16; TEMP 36.6; O2SAT 99
[2022-07-23 13:12] VITALS: RESP 18
[2022-07-23 13:41] VITALS: BP 154/80; PULSE 67; RESP 18; TEMP 36.7; O2SAT 98
[2022-07-23 13:44] VITALS: BMI 32.9
[2022-07-23 15:13] VITALS: O2SAT 98
[2022-07-23 22:37] VITALS: BP 126/81; PULSE 72; RESP 18; TEMP 36.5; O2SAT 94
[2022-07-23] MEDS: Acetaminophen 325 MG Tablet 650 MG PO (23:07)
[2022-07-24 01:46] VITALS: BMI 32.8
[2022-07-24 05:33] VITALS: BP 116/60; PULSE 66; RESP 18; TEMP 36.4; O2SAT 95
[2022-07-24] MEDS: 0.9% Normal Saline 1,000 ML 125 ML IV (05:40)
[2022-07-24 06:39] LABS: Absolute Neutrophil Count 4.1 X10^3/uL (2.0-7.7); Basophil# 0.06 X10^3/uL; Basophil% 0.9 % (0-1); Eosinophil# 0.24 X10^3/uL; Eosinophils% 3.6 % (0-5); Hematocrit 41.9 % (37-47); Lymphocyte % 24.2 % (19-41); Mean Corpuscular Hgb 29.1 pg (27.0-32.0); Mean Corpuscular Volume 93.7 fL (81-99); Mean Platelet Vol. 9.5 fl (6.2-12.0); Monocyte# 0.59 X10^3/uL; Monocyte% 8.9 % (0-10); NRBC Flagged by Analyzer 0 % (0-5); Neutrophil # 4.11 X10^3/uL (2.7-7.7); Neutrophil % 62.1 % (47-70); Platelet Count 272 K/mm3 (150-450); RBC Distribution Width CV 13.7 % (11.6-14.6); RBC Distribution Width SD 46.7 fl (35.1-43.9); Red Blood Count 4.47 M/mm3 (4.2-5.4); White Blood Count 6.6 K/mm3 (4.4-11.0)
[2022-07-24 07:11] LABS: ALB/GLOB Ratio 0.8 RATIO (0.9-2.4); AST(SGOT) 24 U/L (15-37); Alanine Aminotransfer ALT/SGPT 15 U/L (13-56); Albumin, Serum 2.5 g/dL (3.2-5.0); Alkaline Phosphatase 138 U/L (45-117); Anion Gap 6 (5-15); BUN 8 mg/dL (7-18); BUN/Creat Ratio 15.2 RATIO (10-20); Calcium,Total 8.2 mg/dL (8.5-10.1); Chloride 111 mmol/L (98-107); Creatinine, Serum 0.53 mg/dL (0.55-1.02); EST Glomerular Filtration Rate 120 mL/min (>60); Est Glom Filt Rate - Afr Amer 145 mL/min (>60); Estimated Creatinine Clearance 38.97 ml/min; Globulin 3.2 g/dL (2.2-4.2); Glucose 94 mg/dL (74-106); Potassium 3.5 mmol/L (3.5-5.1); Protein, Total 5.7 g/dL (6.4-8.2); Sodium Level 142 mmol/L (136-145)
[2022-07-24 07:45] VITALS: BP 140/87; PULSE 67; RESP 18; TEMP 37.1; O2SAT 98
[2022-07-24] MEDS: Magnesium Chloride 64 MG Delay Rel.Tablet 128 MG PO (09:56)
[2022-07-24] MEDS: Docusate Sodium 100 MG Capsule PO (09:56)
--- NOTE | 2022-07-24 11:02 | DCINST_ITS ---
Discharge Instructions Diet Discharge Diet: Low fat / Low cholesterol Activity Discharge Activity: - (Please moderate activity, mild to moderate level until abdominal pain resolved.) May resume sexual activity in: 10-14 days Weight Bearing Status: Weight bearing as tolerated Dressing / Incision Call your doctor if you observe: Fever of 101 or Higher, Shortness of breath, Dizziness, Chest pain and Uncontrolled pain Follow Up Care Test Results: Test results from this visit will be discussed in further detail at your follow- up appointment, if applicable. Discharge Plan Admission Admit Date/Time: 07/23/22 11:52 Primary Reason for Your Visit: Acute Diverticulitis Attending Provider: Nanette Robles Primary Care Provider: Eduin Aguilar Instructions Patient Instructions: Diverticulosis and Diverticulitis, Diverticulitis Dc Additional Instructions / Restrictions: Please continue the oral augmentin antibiotic therapy to completion. I did not send a tylenol script in as this can be taken just over the counter. If you have any worsening pain or onset fevers, nausea or emesis please contact your primary care earlier or present to the ED for re-evaluation. Discharge Orders/Prescriptions Prescriptions: New amoxicillin-pot clavulanate 875-125 mg tablet 1 tab PO Q12H 12 Days Qty: 24 0RF acetaminophen [Tylenol Extra Strength] 500 mg tablet 500 mg PO Q6H PRN (Reason: pain) Qty: 20 0RF Continued docusate sodium [Stool Softener] 100 mg Capsule 100 mg PO DAILY Probiotic 3 billion cell Capsule 30,000,000 cell PO DAILY magnesium oxide 400 mg magnesium Tablet 400 mg PO DAILY guar gum Powder 1 tbsp PO DAILY Rx Instructions: mix into at least 4 oz water or juice before administering Referrals / Follow Up: Parish Joel MD [Med Staff - Active Staff] - (If you have any recurrent diverticulitis we would strongly recommend follow-up evaluation with General surgery as discussed during your visit.) Amish Brito DO [Med Staff - Active Staff] - (Please follow-up with Dr. Brito as previously arranged. ) Eduin Aguilar PA [Primary Care Provider] - Within 1 Week (Please follow- up to review admission, have re-assessment.) Disposition Disposition (needs filled in before D/C Order can be placed): Home, Self Care
--- NOTE | 2022-07-24 11:04 | PCM.DC.SUM ---
Providers Date of Admission: 07/23/22 Date of Discharge: 07/24/22 Primary Care Physician: SANDY Spencer Reason For Visit: ACUTE DIVERITICULITIS Diagnosis Discharge Diagnosis (1) Sigmoid diverticulitis: Status: Acute Code(s): K57.32 - Diverticulitis of large intestine without perforation or abscess without bleeding (2) Localized peritonitis: Status: Acute Code(s): K65.9 - Peritonitis, unspecified Plan: Additional Diagnoses: #1.? Acute Sigmoid Diverticulitis w/ localized peritonitis #2.? Elevated BP without HTN, felt pain related; however, recommended PCP follow-up to trend as improved but still mildly above goal #3.? Obesity #4.? GERD #5.? History GI bleed Medications at Discharge Home Medications docusate sodium 100 mg capsule (Stool Softener) 100 mg PO DAILY constipation 04/02/22 lactobacillus combination no.4 3 billion cell capsule (Probiotic) 30,000,000 cell PO DAILY PROBIOTIC 04/02/22 magnesium oxide 400 mg PO DAILY supplement 04/02/22 guar gum 1 tbsp PO DAILY 07/23/22 acetaminophen 500 mg tablet (Tylenol Extra Strength) 500 mg PO Q6H PRN pain #20 tabs 07/24/22 amoxicillin 875 mg-potassium clavulanate 125 mg tablet 1 tab PO Q12H 12 days #24 tabs 07/24/22 Hospital Course Operations None Procedures None Summary of Care Provided Minutes Spent on Discharge: 35 Hospital Course: The patient is a 76 y/o F w/ PMHx: Obesity, GERD, Hx Rectal Ulcer, Hx Diverticulosis who presented to the [facility] ED on 07/23/22 with history of initially discomfort Friday late evening following intake of several sweet food items and graduation picnic items she normally does not eat with general discomfort and ache but no severe pain or any nausea or emesis which persisted until yesterday which she initially noted had been improved in the morning but eventually she unfortunately sneezed and following this she felt a weird pulling sensation in the left lower quadrant and since then she had continuous ongoing aching, mild to moderate 4-6 out of 10 in severity discomfort although worse with palpation and worse with any activity specifically noting the car ride over with no nausea, emesis but ongoing general malaise prompting eventual ED evaluation. Patient does have some chronic issues with urgency and does have evidence on the CT scan of the cystocele.? She denies any dysuria, frequency or hematuria.? Patient denies usage of any anticoagulation or antiplatelet therapy. Work-up in the ED included T98.1, heart rate 81, BP 187/98, respiratory rate 16, 98% room air, CBC with WC 8.9, human 13.9, platelet 270 without marked shift, BMP unremarkable aside glucose 117, lactic acid 0.8, urinalysis not marked appearing except leukocyte Estrace 100 but negative nitrite and no marked urine RBCs or marked WBCs, 1+ urine bacteria, CT abdomen pelvis with sigmoid diverticulosis and a mild degree of localized sigmoid diverticulitis without fluid or abscess formation, evidence status post hysterectomy and evidence of a cystocele, fatty infiltration of the liver.? In the ED patient ministered normal saline maintenance IV fluid, morphine 4 mg IV x1, Zofran 4 mg IV x1 and Zosyn IV antibiotic regimen. Patient was admitted to [place], maintained on?hydration, monitored I&Os, initially NPO status w/ bowel rest, treated with IV zosyn regimen, IV PPI, anti-emetics, pain regimen PRN. Overnight pain improved requiring no narcotic therapy. Diet advanced without issue. Given pain controlled, tolerating diet, patient discharged to home in stable condition on augmentin and recommended PRN tylenol OTC regimen with follow-up with PCP, information about General Surgeon Dr. Joel (on day of discharge) in case of any recurrent diverticulitis in case of more definitive solution needed in the future. Patient during admission did have initially significantly elevated blood pressure however this improved and suspected likely related with pain but still mildly above goal thus encourage continued outpatient follow-up with PCP with BP reassessments during visit of that time with initiation of regimen if appropriate. DAY OF DISCHARGE PROGRESS NOTE: Subjective: Patient without acute event overnight per self and nursing report. Patient required no pain medications overnight and felt as though her left lower quadrant abdominal discomfort improved, able to palpate her self which had not been able to do the day prior. Patient denies fever, chills, nausea, emesis, chest pain or dyspnea. Patient tolerated clears and eventual transition of diet slowly without issue. Patient agreeable to discharge to home with continue diet advancement slowly to cardiac diet. Patient will be discharged with follow-up with primary care physician in addition to information given if any recurrent issues with diverticulitis for Dr. Joel, surgeon on-call of day of discharge. Objective: T98.2, heart 77, BP 144/70, respiratory rate 18, 98% on room air. Physical Examination: General: awake, alert, oriented x 3 and cooperative, seated upright in the medical surgical bed, NAD. Skin: normal color, turgor, no icterus, cyanosis. HEENT: AT/NC, EOMI, PERRLA, MMM. Lungs: CTA bilaterally, moderate effort, mild decrease BL bases, no rales, ronchi or wheezing; Heart: Regular rate and rhythm; no gallop, rub audible. Abdomen: soft, very mild discomfort to the left lower quadrant but significantly improved from day prior with no guarding or rebound, ND, mildly hyperactive BS. Extremities: no cyanosis, clubbing, or edema. Neurological: patient awake, alert, oriented x 3; cognitive function appears intact upon questioning,; pupils equally reactive to light and accomodation; cranial nerves II-XII grossly normal, moving all 4 extremities, strength improved, mildly global decrease. Psychiatric: affect appears mildly fatigued otherwise normal, no acute evidence of depressive or anxiety feelings. Assessment and Plan: Please see hospital summary above. Weight / BMI Weight Weight: 185 lb 6.54 oz Body Mass Index (BMI) 32.8 ABG / Lab / Microbiology Data Result Diagrams: 07/24/22 06:23 07/24/22 06:23 Laboratory: Laboratory Results - last 24 hr 07/24/22 06:23: WBC 6.6, RBC 4.47, Hgb 13.0, Hct 41.9, MCV 93.7, MCH 29.1, MCHC 31.0 L, RDW Std Deviation 46.7 H, RDW Coeff of Flash 13.7, Plt Count 272, MPV 9.5, Immature Gran % (Auto) 0.300, Neut % (Auto) 62.1, Lymph % (Auto) 24.2, [place] % (Auto) 8.9, Eos % (Auto) 3.6, Baso % (Auto) 0.9, Absolute Neuts (auto) 4.1, Absolute Lymphs (auto) 1.60, Nucleated RBC % 0 07/24/22 06:23: Sodium 142, Potassium 3.5, Chloride 111 H, Carbon Dioxide 25.0, Anion Gap 6, BUN 8, Creatinine 0.53 L, Estim Creat Clear Calc 38.97, Est GFR (MDRD) Af Amer 145, Est GFR (MDRD) Non-Af 120, BUN/Creatinine Ratio 15.2, Glucose 94, Calcium 8.2 L, Total Bilirubin 0.50, AST 24, ALT 15, Alkaline Phosphatase 138 H, Total Protein 5.7 L, Albumin 2.5 L, Globulin 3.2, Albumin/Globulin Ratio 0.8 L Radiography Diagnostic Testing: Radiology Impression Abdomen/Pelvis CT 07/23/22 09:27 IMPRESSION: Sigmoid diverticulosis and a mild degree of localized sigmoid diverticulitis without fluid or abscess formation. Status post hysterectomy with evidence of a cystocele. Fatty infiltration of the liver. Electronically Signed: Oswald García MD at 11:20 EDT , D/C Instructions Discharge Diet: Low fat / Low cholesterol May resume sexual activity in: 10-14 days Weight Bearing Status: Weight bearing as tolerated Call your doctor if you observe: Fever of 101 or Higher, Shortness of breath, Dizziness, Chest pain and Uncontrolled pain Meaningful Use Info Meaningful Use Diagnoses (Choose all that apply): None applicable Discharge Plan Admission Admit Date/Time: 07/23/22 11:52 Primary Reason for Your Visit: Acute Diverticulitis Attending Provider: Nanette Robles Primary Care Provider: Eduin Aguilar Instructions Patient Instructions: Diverticulosis and Diverticulitis, Diverticulitis Dc Additional Instructions / Restrictions: Please continue the oral augmentin antibiotic therapy to completion. I did not send a tylenol script in as this can be taken just over the counter. If you have any worsening pain or onset fevers, nausea or emesis please contact your primary care earlier or present to the ED for re-evaluation. Discharge Orders/Prescriptions Prescriptions: New amoxicillin-pot clavulanate 875-125 mg tablet 1 tab PO Q12H 12 Days Qty: 24 0RF acetaminophen [Tylenol Extra Strength] 500 mg tablet 500 mg PO Q6H PRN (Reason: pain) Qty: 20 0RF Continued docusate sodium [Stool Softener] 100 mg Capsule 100 mg PO DAILY Probiotic 3 billion cell Capsule 30,000,000 cell PO DAILY magnesium oxide 400 mg magnesium Tablet 400 mg PO DAILY guar gum Powder 1 tbsp PO DAILY Rx Instructions: mix into at least 4 oz water or juice before administering Referrals / Follow Up: Parish Joel MD [Med Staff - Active Staff] - (If you have any recurrent diverticulitis we would strongly recommend follow-up evaluation with General surgery as discussed during your visit.) Amish Brito DO [Med Staff - Active Staff] - (Please follow-up with Dr. Brito as previously arranged. ) Eduin Aguilar PA [Primary Care Provider] - Within 1 Week (Please follow-up to review admission, have re-assessment.) Disposition Disposition (needs filled in before D/C Order can be placed): Home, Self Care Charges/Coding Visit Charges Inpatient E&M: 52031 Disch Hosp >30min
[2022-07-24 14:39] VITALS: BP 144/70; PULSE 77; RESP 18; TEMP 36.8; O2SAT 98
== END 2022-07-24 15:06 | disposition home or self-care (01) ==
LOC: ED 11:57 → MS3 12:30
PROVIDERS: Admitting Provider Family Medicine; Emergency Provider Emergency Medicine; PCP Physician Assistant; Visit Provider Family Medicine
DX: K57.20 Diverticulitis of large intestine with perforation and abscess without bleeding (principal); R03.0 Elevated blood-pressure reading, without diagnosis of hypertension; E66.9 Obesity, unspecified; K21.9 Gastro-esophageal reflux disease without esophagitis; Z68.32 Body mass index [BMI] 32.0-32.9, adult; Z87.19 Personal history of other diseases of the digestive system; R39.15 Urgency of urination
CPT/HCPCS: 36415; 74177; 80048; 80053; 81001; 83605; 85025; 87086; 87088; 87186; 94668; 96361; 96365; 96366; 96368; 96375; 99221; 99252; 99284; J7030; Q9967; A4216; G0378; G0463; J2405

== ENCOUNTER → 2023-10-20 | Outpatient (CLI) | payer MEDICARE, SELFPAY ==
[2023-10-20 17:40] LABS: Absolute Lymphocyte Count 1.87 X10^3/uL (0.83-4.51); Absolute Neutrophil Count 4.3 X10^3/uL (2.0-7.7); Basophil# 0.07 X10^3/uL; Eosinophils% 2.8 % (0-5); Hematocrit 44.4 % (37-47); Hemoglobin 14.6 g/dL (12.0-15.0); Lymphocyte # 1.87 X10^3/ul (0.83-4.51); Lymphocyte % 26.2 % (19-41); Mean Corp Hgb Conc 32.9 g/dL (32-36); Mean Corpuscular Hgb 31.1 pg (27.0-32.0); Mean Corpuscular Volume 94.5 fL (81-99); Mean Platelet Vol. 9.8 fl (6.2-12.0); Monocyte# 0.73 X10^3/uL; Monocyte% 10.2 % (0-10); NRBC Flagged by Analyzer 0 % (0-5); Neutrophil # 4.26 X10^3/uL (2.7-7.7); Neutrophil % 59.5 % (47-70); Platelet Count 314 K/mm3 (150-450); RBC Distribution Width CV 11.9 % (11.6-14.6); RBC Distribution Width SD 41.8 fl (35.1-43.9); White Blood Count 7.2 K/mm3 (4.4-11.0)
[2023-10-20 18:05] LABS: Albumin, Serum 3.2 g/dL (3.2-5.0); Anion Gap 6 (5-15); BUN 18 mg/dL (7-18); BUN/Creat Ratio 26.1 RATIO (10-20); Calcium,Total 9.7 mg/dL (8.5-10.1); Chloride 106 mmol/L (98-107); Creatinine, Serum 0.69 mg/dL (0.55-1.02); EST Glomerular Filtration Rate 87 mL/min (>60); Est Glom Filt Rate - Afr Amer 106 mL/min (>60); Glucose 93 mg/dL (74-106); Potassium 3.8 mmol/L (3.5-5.1); Sodium Level 140 mmol/L (136-145)
== END | disposition home or self-care (01) ==
LOC: LAB 16:13
PROVIDERS: PCP Physician Assistant; Referring Provider Specialist; Visit Provider Specialist
DX: Z01.818 Encounter for other preprocedural examination (principal)
CPT/HCPCS: 36415; 80048; 82040; 85025

== ENCOUNTER 2023-10-27 17:39 | Inpatient (IN) | payer MEDICARE, SELFPAY ==
[2023-10-27] VITALS (8 sets, daily range): BP systolic 108–161; BP diastolic 69–93; PULSE 57–66; RESP 14–25; TEMP 36.1–36.9; O2SAT 94–97; BMI 32.1
--- NOTE | 2023-10-27 19:10 | EKG12_ITS ---
Test Reason : RHYTHM CHANGE Blood Pressure : / mmHG Vent. Rate : 060 BPM Atrial Rate : 060 BPM P-R Int : 170 ms QRS Dur : 074 ms QT Int : 440 ms P-R-T Axes : 023 048 037 degrees QTc Int : 440 ms Normal sinus rhythm with sinus arrhythmia Nonspecific ST abnormality Abnormal ECG Confirmed by KWAME MANCINI, KAREN ([id number]), manager editorial PAULINA PÉREZ ([id number] on 10/28/2023 1:23:29 PM Referred By: MIKAEL Confirmed By:KAREN PUENTE MD
--- NOTE | 2023-10-27 19:49 | EX.ED.DYSGE1 ---
HPI History of Present Illness Chief Complaint: General Illness [facility] Medical History (Updated 10/27/23 @ 23:[address] Jeremi Watts MD) Wears glasses Wears dentures Post-menopausal Thyroid disease Arthritis History of diverticulitis Heartburn Non-smoker History of stress test History of rheumatic fever Hx of fracture of leg Hx of fracture of leg Rectal ulcer Fracture, ankle Home Medications ?Medication ?Instructions ?Recorded ?Last Taken ?Type docusate sodium 100 mg capsule 100 mg PO DAILY PRN constipation 04/02/22 07/22/22 History (Stool Softener) lactobacillus combination no.4 3 30,000,000 cell PO DAILY PROBIOTIC 04/02/22 07/22/22 History billion cell capsule (Probiotic) magnesium oxide 400 mg PO DAILY supplement 04/02/22 07/22/22 History acetaminophen 500 mg tablet 500 mg PO Q6H PRN pain #20 tabs 07/24/22 Unknown Rx (Tylenol Extra Strength) ascorbic acid (vitamin C) 500 mg 500 mg PO DAILY 10/17/23 Unknown History tablet,extended release (C-500) carboxymethylcellulose sodium 1 % 1 drp EACH EYE DAILY 10/17/23 Unknown History eye liquid gel drops cholecalciferol (vitamin D3) 50 50 mcg PO DAILY 10/17/23 Unknown History mcg (2,000 unit) capsule (Vitamin D3) elderberry fruit 200 mg capsule 200 mg PO PRN PRN ILLNESS 10/17/23 Unknown History Allergy/AdvReac Type Severity Reaction Status Date / Time nitrofurantoin (From Allergy Upset Verified 10/27/23 17:40 Macrobid) Stomach Sulfa (Sulfonamide Allergy Upset Verified 10/27/23 17:40 Antibiotics) Stomach sulfamethoxazole (From Allergy Upset Verified 10/27/23 17:40 Bactrim) Stomach sunflower seed Allergy Upset Verified 10/27/23 17:40 Stomach trimethoprim (From Bactrim) Allergy Upset Verified 10/27/23 17:40 Stomach Family History Mother Asthma Surgical History Hx of right cataract extraction Hx of left cataract extraction Hx of dilation and curettage Hx of tonsillectomy Hx of colonoscopy H/O hemorrhoidectomy Hx of hysterectomy Social History (Updated 07/23/22 @ 12:[address] Nanette Robles MD) household members: none current occupational status: employed current occupation: [employer], retired from [employer]. Smoking Status: Never smoker alcohol intake: never substance use type: does not use EXAM Physical Exam Const Vital Signs: 10/27/23 17:40 10/27/23 18:57 10/27/23 19:03 Temperature 97 F L Temperature Source Temporal Pulse Rate 57 L 65 Respiratory Rate 25 H 16 Respiratory Effort Normal Non-Labored Respiratory Pattern Normal Blood Pressure 141/83 H 161/86 H Blood Pressure Mean 102 111 Pulse Ox 97 95 Oxygen Delivery Method Room Air Room Air 10/27/23 20:36 10/27/23 21:08 10/27/23 21:42 Temperature Temperature Source Pulse Rate 60 61 66 Respiratory Rate 18 17 18 Respiratory Effort Respiratory Pattern Blood Pressure 149/79 H 137/69 H 149/84 H Blood Pressure Mean 102 91 105 Pulse Ox 94 94 96 Oxygen Delivery Method Room Air Room Air Room Air 10/27/23 22:32 10/27/23 22:52 Temperature 98 F Temperature Source Pulse Rate 64 66 Respiratory Rate 14 25 H Respiratory Effort Respiratory Pattern Blood Pressure 137/82 H 108/93 H Blood Pressure Mean 100 98 Pulse Ox 94 96 Oxygen Delivery Method Room Air MDM MDM MDM Narrative Medical decision making narrative: HISTORY OF PRESENT ILLNESS: 77-year-old female presents with sudden onset headache, vomiting. No she has had a sudden hot flash as well. Notes this all occurred just prior to arrival when she is watching a movie. Patient denies vomiting, neck pain, stiffness, changes in vision, fever, history malignancy, syncope, or seizures associated with headache. NO CP or SOB endorsed. Patient denies any saddle anesthesia, urinary retention, bowel or bladder incontinence, lower extremity weakness, fever or IV drug use, no recent spinal manipulation or surgery, no recent urinary catheterization. Patient denies sudden onset of pain, no tearing sensation, no migratory symptoms, no new numbness, weakness or loss of sensation. Patient denies family history or personal history of Connective tissue disorders (Marfan's Syndrome, Julio Cesar Danlos etc). The patient denies recent surgery in the last 4 weeks or immobilization in the last 3 days, denies previous diagnosis of DVT or PE, hemoptysis, unilateral leg swelling or malignancy with treatment the last 6 months or palliative. No estrogen use noted. REVIEW OF SYSTEMS: Pertinent positives: Headache/nausea vomiting, back pain Pertinent negatives: Shortness of breath, leg swelling PHYSICAL EXAM: Nursing triage notes reviewed, Vital signs reviewed Constitutional: please see mdm HENT: MMM Eyes: Pupils equal round and reactive to light, Extraocular muscles intact Neck: No stridor, no JVD, full neck ROM Lungs: Clear to auscultation, No wheezing or rales. No increased work of breathing, no conversational dyspnea, no accessory muscle use, no nasal flaring. No respiratory distress noted Heart: Regular rate and rhythm, No murmurs, No rubs and No gallops, 2+ distal pulses (radial, femoral, posterior tibial) in all extremities Abdomen: Soft, there is no tenderness, rigidity, rebound or guarding, no obvious peritoneal signs, no palpable pulsatile abdominal masses, no auscultated abdominal bruit : No CVAT Extremities: No edema Neuro: No focal neurological deficits, cranial nerves II through XII intact, 5/5 strength in all extremities. Intact sensation to light touch in all extremities, 2+ reflexes bilateral patella tendons. Normal gait. No ataxia. Skin: No rash or lesions noted MEDICAL DECISION MAKING: Chief Complaint: Headache, nausea vomiting External records reviewed: Imaging reviewed: CT scan of the abdomen pelvis from 2022 shows scattered diverticulosis Factors affecting care: Diverticulitis, rectal ulcer MDM Narrative: Patient was initially hypertensive with a blood pressure 161/86 otherwise afebrile and nontoxic-appearing. Exam without focal neurologic deficit, focal cardiopulmonary normality. I considered the following differential diagnosis: ICH, ACS, intra-abdominal pathology, dehydration, electrolyte disturbance, acute kidney injury I obtained a broad lab and imaging workup to further elucidate etiology of patient complaint. Initial treated the patient's headache with Tylenol While I considered pulmonary embolism as a potential etiology given patient's report of chest tightness and initial tachypnea the patient low risk Wells score and as such have a low suspicion. Consider obtaining a CT of the chest however thought this not indicated given lack of historical and clinical exam findings suggestive of VTE. While I considered aortic dissection as a potential etiology given chest discomfort and back pain. The nature of the patient's pain was not ripping or tearing. She had no pulse deficits. She had no family or personal history of connective tissue diseases and as such she is a low risk for aortic dissection. I consider obtaining a CT scan of the chest-pelvis however thought does not indicate the time given lack of historical and clinical exam findings to suggest aortic dissection ALL IMAGES (IF OBTAINED) HAVE BEEN PERSONALLY REVIEWED AND INTERPRETED BY MYSELF. EKG with sinus bradycardia rate of 59, normal axis, normal intervals, no STEMI Troponin elevated consistent with myocardial ischemia. BMP without evidence of significant electrolyte abnormalities, no anion gap, no acute kidney injury. CBC without leukocytosis, severe anemia, no thrombocytopenia. CT scan head was negative I have personally reviewed the patient's chest x-ray. Chest x-ray is unremarkable for pulmonary edema, pneumothorax, pneumonia or focal cardiopulmonary abnormality. Of note radiologist noted incidental finding of possible lymphadenopathy versus hilar mass. Will obtain a CT of the chest. CTA shows evidence of a perihilar mass. Discussed incidental finding with the patient. Of note during the patient's ED course she had a approximately 10-second run of nonsustained ventricular tachycardia. Patient seems symptomatic. Repeat EKG after this event showed normal sinus rhythm, normal axis, no STEMI, no changes from prior EKG Given elevated troponin concern for myocardial ischemia patient will need admission for serial biomarkers, and further intervention and cardiology consultation. Discussed with hospitalist Dr. Watts who agreed with admission to PCU. Aspirin given for mortality benefit. The patient and/or family, caregivers express understanding. The patient and/or family, caregivers agrees with the plan. Shared decision making: I will have a discussion with the patient and or visitors regarding risk/benefits of further testing or admission. They will be made aware of of the risk/benefits inherent in this decision they will be given the opportunity to voice understanding. Total critical care time today provided was at least 0 minutes. This excludes separately billable procedures. Critical care time (if documented) is secondary to the patient having high probability of clinically significant/life threatening deterioration in the patient's condition which required my urgent intervention. Impression: 1. Headache 2. Vomiting 3. Chest pain 4. Elevated troponin Dispo: Admit to PCU This note was generated with [employer] dictation software. It may contain incorrect words, spelling, and punctuation that were not noted in review of the chart prior to signing. Lab Data Labs: Laboratory Results - last 24 hr 10/27/23 19:05 WBC 9.7 RBC 4.97 Hgb 15.4 H Hct 48.2 H MCV 97.0 MCH 31.0 MCHC 32.0 RDW Std Deviation 42.9 RDW Coeff of Flash 12.0 Plt Count 326 MPV 10.3 Sodium 137 Potassium 3.5 Chloride 103 Carbon Dioxide 26.0 Anion Gap 8 BUN 18 Creatinine 0.72 Estim Creat Clear Calc 61.10 Est GFR (MDRD) Af Amer 100 Est GFR (MDRD) Non-Af 83 BUN/Creatinine Ratio 24.9 H Glucose 141 H Calcium 9.2 Magnesium 2.5 Troponin I High Sens 1482 H* Radiography Diagnostic Testing: Clinical Impression(s) from Imaging Studies Brain CT 10/27/23 20:20 IMPRESSION: No acute intracranial abnormality. Chronic involutional and ischemic changes of the brain. Electronically Signed: Norm Lemus MD at 21:11 EDT , Chest X-Ray 10/27/23 20:55 IMPRESSION: 2 cm right hilar lymphadenopathy versus perihilar mass. In either instance, recommend Chest CT w/ contrast. Electronically Signed: Norm Lemus MD at 21:23 EDT , Discharge Plan Disposition Disposition: Acute Care Hospital [facility] Discharge Date/Time: 10/27/23 23:37
--- NOTE | 2023-10-27 20:20 | CT_ITS ---
EXAMINATION : Head CT w/out contrast HISTORY : acute [place] COMPARISON : None. TECHNIQUE : Multiple contiguous axial images were obtained from the skull base to the vertex without intravenous contrast. A radiation dose optimization technique was used for this scan. FINDINGS : There is no evidence for acute intracranial hemorrhage, mass effect, or midline shift. There is no extra-axial fluid collection. There are periventricular white matter changes consistent with chronic microvascular ischemic disease. There is sulcal widening and ventricular enlargement consistent with cerebral atrophy. There is normal mock-white differentiation, without CT evidence of acute ischemia or infarct. The skull base and calvarium are unremarkable. The orbits are unremarkable. The paranasal sinuses are clear. The mastoid air cells are well-aerated. The soft tissues are unremarkable. CT/Brain/Head without Contrast IMPRESSION: No acute intracranial abnormality. Chronic involutional and ischemic changes of the brain. Electronically Signed: Norm Lemus MD at 21:11 EDT ,
[2023-10-27] MEDS: Metoclopramide 10 MG/2 ML Vial 5 MG IV (20:47)
[2023-10-27] MEDS: Acetaminophen 325 MG Tablet PO (20:48)
[2023-10-27] MEDS: 0.9% Normal Saline (500mL Bag) 500 ML 999 ML IV (20:48)
--- NOTE | 2023-10-27 20:55 | RAD_ITS ---
INDICATION: chest discomfort EXAMINATION/TECHNIQUE: X-RAY - XR Chest 1 View COMPARISON: 08/20/2012. FINDINGS: 2.1 cm round density in the right hilar region. Scattered subsegmental atelectasis. Tortuous and calcified thoracic aorta. The heart is mildly enlarged. No pleural effusion or pneumothorax. Degenerative changes of the thoracic spine. RAD/Chest 1 View (Portable) IMPRESSION: 2 cm right hilar lymphadenopathy versus perihilar mass. In either instance, recommend Chest CT w/ contrast. Electronically Signed: Norm Lemus MD at 21:23 EDT ,
--- NOTE | 2023-10-27 21:37 | CT_ITS ---
ACR Level 3 findings have been noted. An addendum which confirms receipt of the report will follow. INDICATION: CP EXAMINATION: CTA Chest WO/W Contrast Injection TECHNIQUE: Helically acquired images were obtained of the chest following administration of IV contrast. A radiation dose optimization technique was used for this scan. 3D postprocessing images including MIPS were reviewed. IV Contrast dosage and agent: IV 100mL [id number] COMPARISON: None. FINDINGS: Lungs: In the right middle lobe there is a 2.4 x 2.1 x 2 cm solid perihilar mass. Mediastinum: The heart is mildly enlarged. No mediastinal, hilar or axillary adenopathy. Mild aortic arch and coronary artery calcifications. No obvious filling defect seen within the visualized pulmonary arteries. Heterogeneous, nodular and enlarged thyroid gland. Pleura: Unremarkable Bones/Soft tissues: There are diffuse degenerative changes of the spine. Age indeterminate mild compression deformities of T7 and T8 vertebral bodies. No retropulsion of fragments. Upper abdomen: Hiatal hernia. CT/CTA Chest W/WO Contrast IMPRESSION: Age indeterminate mild compression deformities of T7 and T8 vertebral bodies. Solid 2.4 cm right perihilar lung mass is highly concerning for malignancy. Recommend IR consult for CT-guided percutaneous lung biopsy. Heterogeneous, nodular and enlarged thyroid gland. Recommend nonemergent thyroid ultrasound for further evaluation. Electronically Signed: Norm Lemus MD at 23:39 EDT ,
--- NOTE | 2023-10-27 21:42 | EKG12_ITS ---
Test Reason : JAW PAIN Blood Pressure : / mmHG Vent. Rate : 059 BPM Atrial Rate : 059 BPM P-R Int : 178 ms QRS Dur : 074 ms QT Int : 428 ms P-R-T Axes : 010 041 043 degrees QTc Int : 423 ms Sinus bradycardia Nonspecific ST abnormality Abnormal ECG Confirmed by KWAME MANCINI, KAREN ([id number]), editor & co founder PAULINA PÉREZ ([id number]) on 10/28/2023 1:23:15 PM Referred By: MIKAEL/NICKI Confirmed By:KAREN PUENTE MD
[2023-10-27 21:44] LABS: Hematocrit 48.2 % (37-47); Hemoglobin 15.4 g/dL (12.0-15.0); Mean Platelet Vol. 10.3 fl (6.2-12.0); Platelet Count 326 K/mm3 (150-450); RBC Distribution Width SD 42.9 fl (35.1-43.9); Red Blood Count 4.97 M/mm3 (4.2-5.4); White Blood Count 9.7 K/mm3 (4.4-11.0)
[2023-10-27 21:58] LABS: Anion Gap 8 (5-15); BUN 18 mg/dL (7-18); BUN/Creat Ratio 24.9 RATIO (10-20); Calcium,Total 9.2 mg/dL (8.5-10.1); Chloride 103 mmol/L (98-107); Creatinine, Serum 0.72 mg/dL (0.55-1.02); EST Glomerular Filtration Rate 83 mL/min (>60); Est Glom Filt Rate - Afr Amer 100 mL/min (>60); Glucose 141 mg/dL (74-106); Potassium 3.5 mmol/L (3.5-5.1); Sodium Level 137 mmol/L (136-145); Troponin-I HS (w/2H Reflex) 1482 pg/mL (3.0-54.0)
[2023-10-27 22:49] LABS: Magnesium 2.5 mg/dL (1.6-2.6)
[2023-10-27] MEDS: Aspirin 325 MG Tablet PO (22:51)
--- NOTE | 2023-10-27 23:06 | HP.PCM_ITS ---
HPI - General General Date of Admission: 10/27/23 Date of Service: 10/27/23 Chief Complaint: Chest pressure HPI Narrative PEGGY LINCOLN, is a 77 F who presents to the emergency room with chief complaint of chest pressure with nausea and vomiting. Onset of symptoms began earlier this evening when she was at the movie theater patient states she felt some upper back mid chest pressure and as she left the movie theater felt suddenly nauseous and threw up outside the movie theater. She was helped to the car by a friend and then she had another emesis. Patient states after she got home she did not feel well and decided to drive herself to the emergency room. Patient denies any shortness of breath and currently is chest pain-free during my evaluation. Patient denies any fevers or chills at this time. Her initial troponin was measured at 1482 and EKG was negative for ST elevations. Other laboratory studies are unremarkable. Patient will be made n.p.o. pending cardiology consult [facility] Medical History (Updated 10/27/23 @ 23:[address] Jeremi Watts MD) Wears glasses Wears dentures Post-menopausal Thyroid disease Arthritis History of diverticulitis Heartburn Non-smoker History of stress test History of rheumatic fever Hx of fracture of leg Hx of fracture of leg Rectal ulcer Fracture, ankle Home Medications ?Medication ?Instructions ?Recorded ?Last Taken ?Type docusate sodium 100 mg capsule 100 mg PO DAILY PRN constipation 04/02/22 07/22/22 History (Stool Softener) lactobacillus combination no.4 3 30,000,000 cell PO DAILY PROBIOTIC 04/02/22 07/22/22 History billion cell capsule (Probiotic) magnesium oxide 400 mg PO DAILY supplement 04/02/22 07/22/22 History acetaminophen 500 mg tablet 500 mg PO Q6H PRN pain #20 tabs 07/24/22 Unknown Rx (Tylenol Extra Strength) ascorbic acid (vitamin C) 500 mg 500 mg PO DAILY 10/17/23 Unknown History tablet,extended release (C-500) carboxymethylcellulose sodium 1 % 1 drp EACH EYE DAILY 10/17/23 Unknown History eye liquid gel drops cholecalciferol (vitamin D3) 50 50 mcg PO DAILY 10/17/23 Unknown History mcg (2,000 unit) capsule (Vitamin D3) elderberry fruit 200 mg capsule 200 mg PO PRN PRN ILLNESS 10/17/23 Unknown History Allergy/AdvReac Type Severity Reaction Status Date / Time nitrofurantoin (From Allergy Upset Verified 10/27/23 17:40 Macrobid) Stomach Sulfa (Sulfonamide Allergy Upset Verified 10/27/23 17:40 Antibiotics) Stomach sulfamethoxazole (From Allergy Upset Verified 10/27/23 17:40 Bactrim) Stomach sunflower seed Allergy Upset Verified 10/27/23 17:40 Stomach trimethoprim (From Bactrim) Allergy Upset Verified 10/27/23 17:40 Stomach Family History Mother Asthma Surgical History Hx of right cataract extraction Hx of left cataract extraction Hx of dilation and curettage Hx of tonsillectomy Hx of colonoscopy H/O hemorrhoidectomy Hx of hysterectomy Social History (Updated 07/23/22 @ 12:[address] Nanette Robles MD) household members: none current occupational status: employed current occupation: [employer], retired from [employer]. Smoking Status: Never smoker alcohol intake: never substance use type: does not use ROS Constitutional Constitutional: Denies chills or fever(s) Eyes Eyes: Denies change in vision ENT HEENT: Denies abnormal hearing Cardiovascular Cardiovascular: Reports chest pain; Denies syncope Respiratory/Chest Respiratory/Chest: Denies cough, shortness of breath at rest or shortness of breath with exertion Gastrointestinal Gastrointestinal: Reports nausea and vomiting Genitourinary Genitourinary: Denies dysuria Musculoskeletal Musculoskeletal: Denies extremity pain Integumentary Integumentary: Denies dry skin Neurologic Neurologic: Denies confusion Psychiatric Psychiatric: Denies anxiety Vital Signs Vital Signs Vital Signs: 10/27/23 17:40 10/27/23 18:57 10/27/23 19:03 Temperature 97 F L Temperature Source Temporal Pulse Rate 57 L 65 Respiratory Rate 25 H 16 Respiratory Effort Normal Non-Labored Respiratory Pattern Normal Blood Pressure 141/83 H 161/86 H Blood Pressure Mean 102 111 Pulse Ox 97 95 Oxygen Delivery Method Room Air Room Air 10/27/23 20:36 10/27/23 21:08 10/27/23 21:42 Temperature Temperature Source Pulse Rate 60 61 66 Respiratory Rate 18 17 18 Respiratory Effort Respiratory Pattern Blood Pressure 149/79 H 137/69 H 149/84 H Blood Pressure Mean 102 91 105 Pulse Ox 94 94 96 Oxygen Delivery Method Room Air Room Air Room Air 10/27/23 22:32 10/27/23 22:52 Temperature 98 F Temperature Source Pulse Rate 64 66 Respiratory Rate 14 25 H Respiratory Effort Respiratory Pattern Blood Pressure 137/82 H 108/93 H Blood Pressure Mean 100 98 Pulse Ox 94 96 Oxygen Delivery Method Room Air Weight Weight: 187 lb 2.759 oz Body Mass Index (BMI) 32.1 Physical Exam Const oriented x3 HEENT normocephalic and head/scalp atraumatic Eyes PERRL Neck no lymphadenopathy Lymph Lymphatic: no lymphadenopathy noted Resp normal respiratory effort, normal air movement and clear to auscultation bilaterally Cardio regular rate, regular rhythm, S1 normal heart sound and S2 normal heart sound GI normal to inspection, nondistended, normoactive bowel sounds Extremity normal capillary refill Skin General Skin Exam: no breakdown Neuro no focal motor deficits and no sensory deficits noted Psych thought process normal, cooperative and affect normal Appearance: appropriate Results Lab / Micro Data 10/27/23 19:05 10/27/23 19:05 Labs: Laboratory Results - last 24 hr 10/27/23 19:05: WBC 9.7, RBC 4.97, Hgb 15.4 H, Hct 48.2 H, MCV 97.0, MCH 31.0, MCHC 32.0, RDW Std Deviation 42.9, RDW Coeff of Flash 12.0, Plt Count 326, MPV 10.3, Sodium 137, Potassium 3.5, Chloride 103, Carbon Dioxide 26.0, Anion Gap 8, BUN 18, Creatinine 0.72, Estim Creat Clear Calc 61.10, Est GFR (MDRD) Af Amer 100, Est GFR (MDRD) Non-Af 83, BUN/Creatinine Ratio 24.9 H, Glucose 141 H, Calcium 9.2, Magnesium 2.5, Troponin I High Sens 1482 H* Imaging Radiology Impression Brain CT 10/27/23 20:20 IMPRESSION: No acute intracranial abnormality. Chronic involutional and ischemic changes of the brain. Electronically Signed: Norm Lemus MD at 21:11 EDT , Chest X-Ray 10/27/23 20:55 IMPRESSION: 2 cm right hilar lymphadenopathy versus perihilar mass. In either instance, recommend Chest CT w/ contrast. Electronically Signed: Norm Lemus MD at 21:23 EDT , Assessment & Plan Assessment/Plan (1) Non-STEMI (non-ST elevated myocardial infarction): PLAN: Plan 1. Non-ST elevation CT.?Admit patient to progressive care unit, make patient n.p.o. consult cardiology. Cycle cardiac enzymes. Add as needed morphine for any chest pain as well as oxygen and nitroglycerin per routine protocol. Patient is currently chest pain-free. Will add CBC BMP magnesium and PT/INR 2. Nausea and vomiting?add Zofran 3. DVT prophylaxis?low molecular weight heparin Charges/Coding Visit Charges Inpatient E&M: 44265 Init Hosp L2
--- NOTE | 2023-10-27 23:06 | ED.RN ---
PT WAS OBSERVED IN [place] ON MONITORS AT NURSING STATION, STAFF TO ROOM, PT CONVERTED TO NORMAL SINUS. PT DENIES ANY CHEST PAIN BUT STATES SHE HAD AN EPISODE OF NOT FEELING WELL AND WAS SIMILAR TO EVENT AT MOVIE.
[2023-10-27 23:38] LABS: Reflex Troponin-HS? (from REC) Y
[2023-10-28] VITALS (9 sets, daily range): BP systolic 97–141; BP diastolic 55–90; PULSE 60–75; RESP 16–20; TEMP 36.1–37.1; O2SAT 93–97
[2023-10-28 00:11] LABS: Prothrombin Time (Protime)PT. 13.2 SECONDS (11.7-14.9)
[2023-10-28 00:12] LABS: Partial Thromboplast Time 34.1 Seconds (24.1-36.2)
[2023-10-28] MEDS: 0.9% Normal Saline (1000mL) 1,000 ML 75 ML IV ×2 (00:31→16:40)
[2023-10-28] MEDS: Heparin Injection (Vial) 5,000 UNIT/ML VIAL 4000 UNIT IV (00:41)
[2023-10-28] MEDS: HEPARIN/D5w 25,000 UNITS 25,000 UNITS/250 ML IV.SOLN. 0.1 UNITS CONT INF (00:44)
[2023-10-28 00:54] LABS: Troponin-I HS 21578 pg/mL (3.0-54.0)
--- NOTE | 2023-10-28 01:00 | EKG12_ITS ---
Test Reason : NSTEMI Blood Pressure : / mmHG Vent. Rate : 067 BPM Atrial Rate : 067 BPM P-R Int : 170 ms QRS Dur : 076 ms QT Int : 434 ms P-R-T Axes : 035 075 074 degrees QTc Int : 458 ms Sinus rhythm with occasional Premature ventricular complexes Low voltage QRS Nonspecific ST abnormality Abnormal ECG When compared with ECG of 27-OCT-2023 21:42, MANUAL COMPARISON REQUIRED, DATA IS UNCONFIRMED Confirmed by KWAME MANCINI, KAREN ([id number]), general expeditor PAULINA PÉREZ ([id number]) on 10/28/2023 10:34:24 AM Referred By: EDILSON Confirmed By:KAREN PUENTE MD
[2023-10-28 04:36] LABS: Troponin-I HS 30937 pg/mL (3.0-54.0)
--- NOTE | 2023-10-28 05:55 | ECHOD_ITS ---
Reason For Study: CHEST PAIN Procedure This was a 2D Doppler, Color Flow transthoracic echocardiogram. Myocardial strain analysis was performed in this exam to aid in the assessment of cardiac function. The study was technically difficult. Exam performed portable in patient room. Left Ventricle Normal LV size. The left ventricular ejection fraction is 50 %. Mild to moderate segmental systolic dysfunction (see wall motion). [place] : Hypokinetic. Mid-Lateral : Hypokinetic. Lateral-Basal: Hypokinetic. There are regional wall motion abnormalities as specified. The rest of the wall segments are normal. Right Ventricle Normal RV size. Normal systolic function. Atria Normal left atrium. Normal right atrium. Mitral Valve There is mild to moderate mitral annular calcification. Tricuspid Valve Normal tricuspid valve. Mild to moderate (1-2+) tricuspid valve insufficiency. Pulmonary artery systolic pressure is 34 mmHg. Aortic Valve Trisinus/trileaflet aortic valve. Pulmonic Valve Normal pulmonic valve. Great Vessels Normal aortic root. The pulmonary artery is normal size. Inferior vena cava collapse with respiration. Pericardium/Pleural No pericardial effusion. MMode/2D Measurements & Calculations LVIDd: 4.3 cm IVSd: 1.5 cm LVOT diam: 2.0 cm LVIDs: 2.6 cm LVPWd: 0.93 cm LVOT area: 3.3 cm2 RVDd: 3.1 cm FS: 39.6 % Ao root diam: 2.6 cm LAV(MOD-bp): 47.4 ml LVAd ap4: 23.8 cm2 LAV(MOD-bp) Indexed: 24.9 ml/m2 LVLd ap4: 7.9 cm LAV(MOD-sp2): 59.9 ml EDV(MOD-sp4): 61.0 ml LAV(MOD-sp4): 33.1 ml EDV(sp4-el): 60.9 ml LVAs ap4: 14.1 cm2 LVLs ap4: 6.3 cm ESV(MOD-sp4): 26.7 ml ESV(sp4-el): 26.5 ml EF(MOD-sp4): 56.3 % EF(sp4-el): 56.5 % LVAd ap2: 23.1 cm2 SV(MOD-sp4): 34.3 ml SV(MOD-sp2): 32.5 ml LVLd ap2: 7.3 cm EDV(MOD-sp2): 60.9 ml EDV(sp2-el): 62.2 ml LVAs ap2: 14.3 cm2 LVLs ap2: 6.0 cm ESV(MOD-sp2): 28.5 ml ESV(sp2-el): 29.2 ml EF(MOD-sp2): 53.2 % SV(sp4-el): 34.4 ml LA dimension(2D): 4.2 cm LA A4 area: 14.5 cm2 RA A4 area: 14.6 cm2 TAPSE: 2.0 cm Time Measurements MV dec time: 0.23 sec Doppler Measurements & Calculations MV E max he: 101.7 cm/sec Lat Peak E' He: 6.7 cm/sec Med Peak E' He: 7.4 cm/sec MV A max he: 123.3 cm/sec E/E' lat: 15.2 E/E' med: 13.7 MV E/A: 0.83 Ao V2 max: 156.0 cm/sec LV V1 max: 111.7 cm/sec MV dec slope: 441.1 cm/sec2 Ao max P.7 mmHg LV V1 max P.0 mmHg Ao V2 mean: 113.9 cm/sec LV V1 mean P.5 mmHg Ao mean P.8 mmHg LV V1 mean: 73.1 cm/sec Ao V2 VTI: 35.1 cm LV V1 VTI: 26.2 cm AV (velocity ratio): 0.75 MARYLOU(I,D): 2.5 cm2 MARYLOU(V,D): 2.4 cm2 SV(LVOT): 86.2 ml PA V2 max: 118.6 cm/sec TR max he: 276.0 cm/sec PA max PG (full): 2.1 mmHg TR max P.5 mmHg ECHO/Echo Complete Interpretation Summary The left ventricular ejection fraction is 50 %. Mild to moderate segmental systolic dysfunction (see wall motion). The global longitudinal strain is mildly abnormal. The global longitudinal stra in = -15.1% (abnormal). Ordering Physician: Jeremi Watts Performed By: Therese Simon RDCS and Student
[2023-10-28 07:00] LABS: Absolute Lymphocyte Count 1.86 X10^3/uL (0.83-4.51); Absolute Neutrophil Count 9.4 X10^3/uL (2.0-7.7); Basophil# 0.06 X10^3/uL; Basophil% 0.5 % (0-1); Eosinophil# 0.02 X10^3/uL; Eosinophils% 0.2 % (0-5); Hematocrit 44.2 % (37-47); Hemoglobin 14.2 g/dL (12.0-15.0); Lymphocyte # 1.86 X10^3/ul (0.83-4.51); Lymphocyte % 15.2 % (19-41); Mean Corp Hgb Conc 32.1 g/dL (32-36); Mean Corpuscular Hgb 30.7 pg (27.0-32.0); Mean Corpuscular Volume 95.5 fL (81-99); Mean Platelet Vol. 9.9 fl (6.2-12.0); Monocyte# 0.93 X10^3/uL; Monocyte% 7.6 % (0-10); NRBC Flagged by Analyzer 0 % (0-5); Neutrophil # 9.35 X10^3/uL (2.7-7.7); Neutrophil % 76.2 % (47-70); Platelet Count 331 K/mm3 (150-450); RBC Distribution Width SD 42.5 fl (35.1-43.9); Red Blood Count 4.63 M/mm3 (4.2-5.4); White Blood Count 12.3 K/mm3 (4.4-11.0)
[2023-10-28 07:05] LABS: International Normalized Ratio 1.1; Prothrombin Time (Protime)PT. 13.9 SECONDS (11.7-14.9)
[2023-10-28 07:31] LABS: Partial Thromboplast Time 120.5 Seconds (24.1-36.2)
--- NOTE | 2023-10-28 07:55 | PN.HOSP_ITS ---
Reason for Visit Reason for Visit: Diagnoses Non-ST elevation (NSTEMI) myocardial infarction (10/27/23) Objective Data Objective Data Vital Signs: Vital Signs Temp Pulse Resp BP Pulse Ox O2 Del Method 98.7 F 60 16 124/70 H 95 Room Air 10/28/23 03:00 10/28/23 03:00 10/28/23 03:00 10/28/23 03:00 10/28/23 03:00 10/28/23 03:00 Oxygen Delivery Method Room Air Weight: 187 lb Body Mass Index (BMI) 32.1 Intake & Output: Intake and Output for Last 24 Hours 10/26/23 10/27/23 10/28/23 23:59 23:59 23:59 Intake Total 500 / 500 0.68 / 0.68 Output Total 0 / 0 Balance 500 / 500 0.68 / 0.68 Lab / Micro Data 10/28/23 06:33 10/28/23 06:33 Labs: Laboratory Results - last 24 hr 10/27/23 19:05: WBC 9.7, RBC 4.97, Hgb 15.4 H, Hct 48.2 H, MCV 97.0, MCH 31.0, MCHC 32.0, RDW Std Deviation 42.9, RDW Coeff of Flash 12.0, Plt Count 326, MPV 10.3, Sodium 137, Potassium 3.5, Chloride 103, Carbon Dioxide 26.0, Anion Gap 8, BUN 18, Creatinine 0.72, Estim Creat Clear Calc 61.10, Est GFR (MDRD) Af Amer 100, Est GFR (MDRD) Non-Af 83, BUN/Creatinine Ratio 24.9 H, Glucose 141 H, Calcium 9.2, Magnesium 2.5, Troponin I High Sens 1482 H* 10/27/23 23:49: PT 13.2, INR 1.0, APTT 34.1, Troponin I High Sens 05521 H* 10/28/23 02:00: Troponin I High Sens 53036 H* 10/28/23 06:33: WBC 12.3 H, RBC 4.63, Hgb 14.2, Hct 44.2, MCV 95.5, MCH 30.7, MCHC 32.1, RDW Std Deviation 42.5, RDW Coeff of Flash 12.0, Plt Count 331, MPV 9.9, Immature Gran % (Auto) 0.300, Neut % (Auto) 76.2 H, Lymph % (Auto) 15.2 L, [place] % (Auto) 7.6, Eos % (Auto) 0.2, Baso % (Auto) 0.5, Absolute Neuts (auto) 9.4 H, Absolute Lymphs (auto) 1.86, Nucleated RBC % 0, PT 13.9, INR 1.1, APTT 120.5 H* Radiography Diagnostic Testing: Radiology Impression Brain CT 10/27/23 20:20 IMPRESSION: No acute intracranial abnormality. Chronic involutional and ischemic changes of the brain. Electronically Signed: Norm Lemus MD at 21:11 EDT Reading Location ID and State: [facility] / [employer] Tel , Service support , Chest X-Ray 10/27/23 20:55 IMPRESSION: 2 cm right hilar lymphadenopathy versus perihilar mass. In either instance, recommend Chest CT w/ contrast. Electronically Signed: Norm Lemus MD at 21:23 EDT Reading Location ID and State: [facility] / [employer] Tel , Service support , Chest CTA 10/27/23 21:37 IMPRESSION: Age indeterminate mild compression deformities of T7 and T8 vertebral bodies. Solid 2.4 cm right perihilar lung mass is highly concerning for malignancy. Recommend IR consult for CT-guided percutaneous lung biopsy. Heterogeneous, nodular and enlarged thyroid gland. Recommend nonemergent thyroid ultrasound for further evaluation. Electronically Signed: Norm Lemus MD at 23:39 EDT Reading Location ID and State: [id number] / [employer] Tel , Service support , ADDENDUM: 10/27/23 2350 IMPRESSION: Age indeterminate mild compression deformities of T7 and T8 vertebral bodies. Solid 2.4 cm right perihilar lung mass is highly concerning for malignancy. Recommend IR consult for CT-guided percutaneous lung biopsy. Heterogeneous, nodular and enlarged thyroid gland. Recommend nonemergent thyroid ultrasound for further evaluation. N.B. : Ramsey Muller DO, confirmed on 10/27/2023 23:43:23 (ET) that the healthcare facility has received the radiology report. Electronically Signed: Norm Lemus MD at 23:39 EDT , Physical Exam Narrative Seen and examined. Patient admitted with headache, upper thoracic pain midline and 2 times vomiting and nausea. No chest pain or shortness of breath. In the ED she had mild chest tightness on returning from the bathroom. Denies prior history of chronic heart disease or lung disease. Never been a smoker. Physical exam General: Alert, Oriented x3, Cooperative HEENT: Atraumatic, PERRLA, EOMI, Normocephalic Oral: No Gingival or Mucosal Lesions/ Ulcerations Neck: Supple, No JVD, Negative Carotid Bruits Chest wall/Lungs: Air entry diminished in bilateral lung bases. No crepitation/rhonchi Cardiovascular: Regular rate, Regular Rhythm, Normal S1, Normal S2, No M/G/R Abdomen: Bowel Sounds Present, Soft, Non Tender, Non-Distended : No dysuria. No renal angle tenderness. No suprapubic tenderness. Extremities: No edema, Capillary Refill Less than 3 Seconds Skin: No rashes, No breakdown Musculoskeletal: No Tenderness to Palpation of Joints or Extremities. ROM full and adequate. Neurological: Cranial nerves II-XII grossly intact, DTR 2+/4. No acute focal neurological deficit. Psych/Mental Status: Normal Affect, Appropriate. Assessment & Plan Assessment/Plan (1) Non-STEMI (non-ST elevated myocardial infarction): PLAN: Plan 77-year-old female came to ED with with sudden onset of headache, vomiting, sudden hot flash while she was watching very. She denied vomiting neck pain stiffness change in vision fever, syncope or seizure associated with headache. BP was high 161/66 but patient afebrile. Twelve-lead EKG shows sinus bradycardia at 59 beats minute, normal axis 1. Non-ST elevation MT.?Admit patient to progressive care unit, make patient n.p.o. consult cardiology. Cycle cardiac enzymes. Add Normal interval. Troponin is elevated. Troponins high, 1482, 21,578 and 30,937. 10/27: Cardiac cath shows triple-vessel disease, LAD, ramus intermedius and RCA. Circumflex also subtotally occluded with collateralization and diffuse small vessel disease. Speech Communication Professor recommended transfer to tertiary care center. I talked to the hospitalist and patient accepted there. 2. Right middle lobe lung mass: CTA chest was done which showed no obvious filling defect suggestive of pulmonary embolism but 2.4 x 2.1 x 2 cm solid perihilar mass in right middle lobe which will need further evaluation either CT-guided biopsy of bronchoscopy and biopsy. Incidental finding was age- indeterminate mild compression deformity of T7 and T8 vertebral bodies. 3 nausea and vomiting?add Zofran 3. DVT prophylaxis?low molecular weight heparin Charges/Coding Visit Charges Inpatient E&M: 81961 Subs Hosp L2
[2023-10-28 08:05] LABS: Anion Gap 9 (5-15); BUN 13 mg/dL (7-18); BUN/Creat Ratio 23.2 RATIO (10-20); Calcium,Total 8.5 mg/dL (8.5-10.1); Chloride 106 mmol/L (98-107); Creatinine, Serum 0.56 mg/dL (0.55-1.02); EST Glomerular Filtration Rate 111 mL/min (>60); Est Glom Filt Rate - Afr Amer 134 mL/min (>60); Estimated Creatinine Clearance 61.07 ml/min; Glucose 127 mg/dL (74-106); Magnesium 2.5 mg/dL (1.6-2.6); Potassium 3.8 mmol/L (3.5-5.1); Sodium Level 138 mmol/L (136-145); Troponin-I HS 32121 pg/mL (3.0-54.0)
--- NOTE | 2023-10-28 09:42 | CASEMGMT ---
Insurance review for hospitals In-network with [employer] insurance if transfer is recommended is as follows: [facility], [facility], [place], [facility], [facility], [facility], [facility], [place], [facility] ([facility]), and . Mallika Donaldson, Discharge Planning Asst.
[2023-10-28] MEDS: Ondansetron 4 MG/2 ML Vial IV (09:53)
--- NOTE | 2023-10-28 11:30 | CON.PCM.CA_ITS ---
Assessment & Plan Assessment/Plan (1) Non-STEMI (non-ST elevated myocardial infarction): PLAN: She presents with a non-ST elevation myocardial infarction. She underwent a cardiac catheterization today which demonstrated the following: Mild 30% distal left main coronary stenosis. Left anterior descending artery with proximal 90% calcified vessel and mid 80% stenosis noted. Left circumflex artery with first obtuse marginal branch which is subtotally occluded in the circumflex artery with diffuse disease in the nondominant vessel. Right coronary artery which is dominant with mid segment calcified 90% stenosis and distal moderate disease with a collateralized circumflex artery system. Reduced left ventricular systolic function with segmental wall motion abnormalities. Based on the above venographic findings I would recommend transfer of this patient for evaluation for coronary bypass surgery. She may also need evaluation of the lung mass for possible malignancy before this is undertaken. (2) Hypertension: PLAN: Patient has a history of hypertension. The plan will be to continue the current medical therapy with a beta-desiree and adding an GRACIELA inhibitor. (3) Lung mass: PLAN: Patient is noted to have a 2 cm hilar mass on the right side. This will need to be evaluated prior to consideration for bypass surgery. Will defer to the cardiothoracic surgeons. Arrangements will be made to transfer to a tertiary care hospital. HPI Consult Data Date of Consult: 10/28/23 HPI Narrative HPI Narrative: PEGGY LINCOLN, is a 77 F who presents to the emergency room with minimal epigastric discomfort nausea vomiting but no chest pain per se. She felt quite bad with this and so presented to the emergency room where she was evaluated she was noted to have nonspecific ST changes on EKG. However cardiac enzymes were noted to be significantly abnormal and the patient was admitted for further evaluation and management. Since admission she has denied any chest pain or shortness of breath or paroxysmal nocturnal dyspnea or pedal edema she has had no neck arm or jaw discomfort suggest angina. She says that she has previously not followed with physicians for any medical problem. She however routinely meets with physicians and sees her primary care physician. Patient was seen earlier on today and was pain-free. [facility] Medical History Wears glasses Wears dentures Post-menopausal Thyroid disease Arthritis History of diverticulitis Heartburn Non-smoker History of stress test History of rheumatic fever Hx of fracture of leg Hx of fracture of leg Rectal ulcer Fracture, ankle Home Medications ?Medication ?Instructions ?Recorded ?Last Taken ?Type docusate sodium 100 mg capsule 100 mg PO DAILY PRN constipation 04/02/22 07/22/22 History (Stool Softener) lactobacillus combination no.4 3 30,000,000 cell PO DAILY PROBIOTIC 04/02/22 07/22/22 History billion cell capsule (Probiotic) magnesium oxide 400 mg PO DAILY supplement 04/02/22 07/22/22 History acetaminophen 500 mg tablet 500 mg PO Q6H PRN pain #20 tabs 07/24/22 Unknown Rx (Tylenol Extra Strength) ascorbic acid (vitamin C) 500 mg 500 mg PO DAILY 10/17/23 Unknown History tablet,extended release (C-500) carboxymethylcellulose sodium 1 % 1 drp EACH EYE DAILY 10/17/23 Unknown History eye liquid gel drops cholecalciferol (vitamin D3) 50 50 mcg PO DAILY 10/17/23 Unknown History mcg (2,000 unit) capsule (Vitamin D3) elderberry fruit 200 mg capsule 200 mg PO PRN PRN ILLNESS 10/17/23 Unknown History Allergy/AdvReac Type Severity Reaction Status Date / Time nitrofurantoin (From Allergy Upset Verified 10/27/23 17:40 Macrobid) Stomach Sulfa (Sulfonamide Allergy Upset Verified 10/27/23 17:40 Antibiotics) Stomach sulfamethoxazole (From Allergy Upset Verified 10/27/23 17:40 Bactrim) Stomach sunflower seed Allergy Upset Verified 10/27/23 17:40 Stomach trimethoprim (From Bactrim) Allergy Upset Verified 10/27/23 17:40 Stomach Family History Mother Asthma Surgical History Hx of right cataract extraction Hx of left cataract extraction Hx of dilation and curettage Hx of tonsillectomy Hx of colonoscopy H/O hemorrhoidectomy Hx of hysterectomy Social History household members: none current occupational status: employed 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 Smoking Status: Never smoker alcohol intake: never substance use type: does not use ROS Constitutional Constitutional: Denies fever(s) or weight loss Eyes Eyes: Reports systems reviewed and no addt'l complaints, except as documented ENT HEENT: Reports systems reviewed and no addt'l complaints, except as documented Cardiovascular Cardiovascular: Reports chest pain at rest; Denies chest pain with activity, dyspnea at rest, dyspnea on exertion, edema, palpitations or paroxysmal nocturnal dyspnea Respiratory/Chest Respiratory/Chest: Denies dyspnea on exertion, productive cough, shortness of breath at rest or shortness of breath with exertion Gastrointestinal Gastrointestinal: Reports nausea and vomiting; Denies change in bowel habits or weight changes Genitourinary Genitourinary: Denies difficulty urinating Musculoskeletal Musculoskeletal: Denies joint stiffness or muscle weakness Integumentary Integumentary: Denies lesions Neurologic Neurologic: Denies dizziness or syncope Psychiatric Psychiatric: Denies anxiety Endocrine Endocrinology: Denies excessive sweating or fatigue Hematologic/Lymphatic Hematologic/Lymphatic: Denies anemia Allergic/Immunologic Allergic/Immunologic: Denies seasonal rhinorrhea Physical Exam Const alert, oriented x3 and no apparent distress General Appearance: cooperative HEENT hearing grossly normal bilaterally Head and Scalp: atraumatic Eyes EOMs intact bilaterally Neck General: normal visual inspection Chest inspection of chest normal and palpation of chest normal Resp normal respiratory effort Auscultation: clear to auscultation bilaterally Cardio regular rate, regular rhythm, S1 normal heart sound and S2 normal heart sound Jugular Venous Distention: JVD GI normal to inspection, nondistended, normoactive bowel sounds Extremity normal capillary refill and no pedal edema Peripheral Pulses: Yes pulses 2+ throughout and femoral pulses present Skin no rashes or lesions noted Neuro oriented x3 and CN's II-XII intact bilaterally Psych Appearance: grossly normal and appropriate Risk Stratification Risk Stratification Applicable: Yes Age >/= 65: Yes >/= 3 CAD Risk Factors (HTN, HLD, DM, family hx of CAD, or current smoker): No Aspirin Use in the Past 7 Days: No Severe Angina (>/= episodes in 24 hours): Yes EKG ST Changes >/= 0.5mm: No Positive Cardiac Marker: Yes CECILIA Risk Stratification Score: 3 CECILIA % Risk: 13% Risk Objective Data Vital Signs: Vital Signs Temp Pulse Resp BP Pulse Ox O2 Del Method 97.0 F L 75 16 141/90 H 94 Room Air 10/28/23 09:02 10/28/23 09:02 10/28/23 09:02 10/28/23 09:02 10/28/23 09:02 10/28/23 09:02 Oxygen Delivery Method Room Air Weight: 187 lb Body Mass Index (BMI) 32.1 Intake & Output: Intake and Output for Last 24 Hours 10/26/23 10/27/23 10/28/23 23:59 23:59 23:59 Intake Total 500 / 500 775.68 / 775.68 Output Total 0 / 0 Balance 500 / 500 775.68 / 775.68 Lab / Micro Data 10/28/23 06:33 10/28/23 06:33 Labs: Laboratory Results - last 24 hr 10/27/23 19:05: WBC 9.7, RBC 4.97, Hgb 15.4 H, Hct 48.2 H, MCV 97.0, MCH 31.0, MCHC 32.0, RDW Std Deviation 42.9, RDW Coeff of Flash 12.0, Plt Count 326, MPV 10.3, Sodium 137, Potassium 3.5, Chloride 103, Carbon Dioxide 26.0, Anion Gap 8, BUN 18, Creatinine 0.72, Estim Creat Clear Calc 61.10, Est GFR (MDRD) Af Amer 100, Est GFR (MDRD) Non-Af 83, BUN/Creatinine Ratio 24.9 H, Glucose 141 H, Calcium 9.2, Magnesium 2.5, Troponin I High Sens 1482 H* 10/27/23 23:49: PT 13.2, INR 1.0, APTT 34.1, Troponin I High Sens 32421 H* 10/28/23 02:00: Troponin I High Sens 94005 H* 10/28/23 06:33: WBC 12.3 H, RBC 4.63, Hgb 14.2, Hct 44.2, MCV 95.5, MCH 30.7, MCHC 32.1, RDW Std Deviation 42.5, RDW Coeff of Flash 12.0, Plt Count 331, MPV 9.9, Immature Gran % (Auto) 0.300, Neut % (Auto) 76.2 H, Lymph % (Auto) 15.2 L, [place] % (Auto) 7.6, Eos % (Auto) 0.2, Baso % (Auto) 0.5, Absolute Neuts (auto) 9.4 H, Absolute Lymphs (auto) 1.86, Nucleated RBC % 0, PT 13.9, INR 1.1, APTT 120.5 H*, Sodium 138, Potassium 3.8, Chloride 106, Carbon Dioxide 23.0, Anion Gap 9, BUN 13, Creatinine 0.56, Estim Creat Clear Calc 61.07, Est GFR (MDRD) Af Amer 134, Est GFR (MDRD) Non-Af 111, BUN/Creatinine Ratio 23.2 H, Glucose 127 H, Calcium 8.5, Magnesium 2.5, Troponin I High Sens 69458 H* Cardiology Labs/Tests 10/27/23 19:05: WBC 9.7, RBC 4.97, Hgb 15.4 H, Hct 48.2 H, MCV 97.0, MCH 31.0, MCHC 32.0, Plt Count 326, MPV 10.3, Sodium 137, Potassium 3.5, Chloride 103, Carbon Dioxide 26.0, Anion Gap 8, BUN 18, Creatinine 0.72, Est GFR (MDRD) Af Amer 100, Est GFR (MDRD) Non-Af 83, BUN/Creatinine Ratio 24.9 H, Glucose 141 H, Calcium 9.2, Magnesium 2.5 10/27/23 23:49: PT 13.2, INR 1.0, APTT 34.1 10/28/23 06:33: WBC 12.3 H, RBC 4.63, Hgb 14.2, Hct 44.2, MCV 95.5, MCH 30.7, MCHC 32.1, Plt Count 331, MPV 9.9, Immature Gran % (Auto) 0.300, Neut % (Auto) 76.2 H, Lymph % (Auto) 15.2 L, [place] % (Auto) 7.6, Eos % (Auto) 0.2, Baso % (Auto) 0.5, Absolute Neuts (auto) 9.4 H, Nucleated RBC % 0, PT 13.9, INR 1.1, A PTT 120.5 H*, Sodium 138, Potassium 3.8, Chloride 106, Carbon Dioxide 23.0, Anion Gap 9, BUN 13, Creatinine 0.56, Est GFR (MDRD) Af Amer 134, Est GFR (MDRD) Non-Af 111, BUN/Creatinine Ratio 23.2 H, Glucose 127 H, Calcium 8.5, Magnesium 2.5 Rhythm: EKG: Sinus bradycardia with a rate of [address]-T wave changes noted. ECHO: Segmental wall motion abnormalities noted with borderline ejection fraction Stress Test: Cardiac Cath: PCI: CT Surgery: Holter monitor: EPS: PPM: CXR: Chest CT Scan: Radiography Diagnostic Testing: Radiology Impression Brain CT 10/27/23 20:20 IMPRESSION: No acute intracranial abnormality. Chronic involutional and ischemic changes of the brain. Electronically Signed: Norm Lemus MD at 21:11 EDT Reading Location ID and State: [id number] / [employer] , Service support , Chest X-Ray 10/27/23 20:55 IMPRESSION: 2 cm right hilar lymphadenopathy versus perihilar mass. In either instance, recommend Chest CT w/ contrast. Electronically Signed: Norm Lemus MD at 21:23 EDT Reading Location ID and State: [employer] / [employer] , Service support , Chest CTA 10/27/23 21:37 IMPRESSION: Age indeterminate mild compression deformities of T7 and T8 vertebral bodies. Solid 2.4 cm right perihilar lung mass is highly concerning for malignancy. Recommend IR consult for CT-guided percutaneous lung biopsy. Heterogeneous, nodular and enlarged thyroid gland. Recommend nonemergent thyroid ultrasound for further evaluation. Electronically Signed: Norm Lemus MD at 23:39 EDT , ADDENDUM: 10/27/23 2350 IMPRESSION: Age indeterminate mild compression deformities of T7 and T8 vertebral bodies. Solid 2.4 cm right perihilar lung mass is highly concerning for malignancy. Recommend IR consult for CT-guided percutaneous lung biopsy. Heterogeneous, nodular and enlarged thyroid gland. Recommend nonemergent thyroid ultrasound for further evaluation. N.B. : Ramsey Muller DO, confirmed on 10/27/2023 23:43:23 (ET) that the healthcare facility has received the radiology report. Electronically Signed: Norm Lemus MD at 23:39 EDT ,
--- NOTE | 2023-10-28 11:50 | CL.D_ITS ---
Patient Name: PEGGY LINCOLN Study Date: 10/28/2023 Performing: Ho Orozco MD Ht: 64 inches 162.56 cm : 1945 Wt: 187.2 lbs 84.82 kg Age: 77 Gender: female BSA: 1.9 PROCEDURE(S) PERFORMED [id number])LHC/COR/LV CLINICAL PROFILE AND INDICATIONS Indications: ACS <= 24 hrs Heart Failure: None Stress/Imaging Stress/Image Study Performed: No CAD Presentations: Non-STEMI. Symptom onset Date/Time: 10/27/23 Time Not Available CONCLUSIONS Severe disease involving the mid LAD and proximal LAD, the mid right coronary artery, totally occluded ramus intermedius. RECOMMENDATIONS Will recommend for coronary artery bypass surgery. DESCRIPTION OF PROCEDURE The patient arrived to the procedure lab. The risks and benefits of the procedure as well as a full description of our services here and current unavailability of surgical backup were fully explained to the patient and/or their significant other prior to the catheterization. The Timeout was completed, verifying the correct patient and procedure. The patient's procedural site was prepped and draped in the usual fashion. Local anesthetic was given subcutaneously to right radial region with Lidocaine 2%. Using a modified Seldinger technique, arterial access was obtained via the right radial artery, a 6Fr sheath was inserted. Left Coronary Artery selective angiography was performed in multiple views using a 5 Fr. 4.0 [place] catheter. Right Coronary Artery selective angiography was then performed in multiple views using a 5 Fr. 4.0 [place] catheter. Left Ventriculography was performed in HODGE projection using a 5 Fr. [place] catheter. LV to AO pullback pressures were then recorded.The arterial sheath was pulled and a TR Band was applied for hemostasis CORONARY ANGIOGRAPHY DOMINANCE: Right Dominant LEFT HEART ASSESSMENT Left Ventricular Ejection Fraction: by LV Gram 40 % Abnormal LV wall motion Depressed Left Ventricular systolic function LEFT MAIN: Distal left main with 30% stenosis LEFT ANTERIOR DESCENDING ARTERY: Severely diseased vessel with high-grade 90% proximal LAD stenosis, mid 80% stenosis in diagonal vessels with mild to moderate disease. CIRCUMFLEX ARTERY: Nondominant vessel with first obtuse marginal branch which is subtotally occluded and collateralized and diffuse small vessel disease RAMUS: Totally occluded proximally and likely the culprit lesion with collateralization seen from the right coronary artery RIGHT CORONARY ARTERY: Severely diseased vessel with calcification and mid right coronary artery with 90% stenosis with right to left collateralization filling the ramus intermedius. COLLATERAL FLOW: Collateral flow from Right to Left COMPLICATIONS No Complications PROCEDURE MEDICATIONS Versed 1 mg IV Fentanyl 50 mcg IV Oxygen: 2 L/min via nasal cannula Aspirin (325mg) 1 Tabs PO @ 10/28/2023 11:02:47 Heparin given IA 10/28/2023 11:12:26 Verapamil 2.5mg, Ntg 100mcgs, 3000 units of Heparin given IA 10/28/2023 11:12:26 SUMMARY OF HEMODYNAMIC DATA Time AIR REST ECG 10:53:41 AO 124/67 (92) SA 11:20:57 LV 133/16, 30 11:27:12 LV 139/17, 32 11:27:20 LVp 125/20, 57 11:28:12 AOp 128/66 (96) 11:28:19 Signed By Ho Orozco MD On 10/28/2023 11:49:58 Ho Orozco MD
[2023-10-28] MEDS: Acetaminophen 325 MG Tablet 650 MG PO ×2 (12:44→22:19)
--- NOTE | 2023-10-28 16:30 | CHAPLAIN ---
Type of Pastoral Visit _x__ Initial Visit ___ Follow-up Visit ___ On-call Visit ___ General Patient Visit ___ Spiritual Assessment ___ Family Conference ___ Bereavement ___ Rapid Response ___ Code Blue ___ Other (describe below) Pastoral Care Referral From _x__ Patient ___ Family ___ Nurse ___ Physician ___ Hardwood Floor Layer ___ Clinical Consultant ___ Other (describe below) Sacrament/Intervention _x__ Active listening ___ Anointing ___ Protestant ___ Bereavement ___ Communion ___ Rakel exploration ___ _x__ Life review _x__ Prayer ___ Reconciliation ___ Sacrament of Sick ___ Supportive presence ___ Wedding ___ Other (describe below) Pastoral Comments patient describes her health emergency and subsequent heart cath; pt is grateful that God directed her to come to the ED because I didn't know I was having a heart attack; pt is to be transferred to another hospital for further procedures; pt has family members with her; pt is upbeat and optimistic about life and 'getting back to work'; pt welcomes presence and prayer for support
[2023-10-28] MEDS: 0.9% Saline Lock 10 ML Syringe IV (16:41)
[2023-10-28] MEDS: Atorvastatin Calcium 40 MG Tablet PO (21:12)
[2023-10-28] MEDS: Metoprolol Tartrate 25 MG Tablet PO (21:12)
--- NOTE | 2023-10-29 00:09 | NURSING ---
Called ronnie to inform pt leaving for facility shortly. [facility] Daniel[facility] GARCIA by lars ross at 2220. Telemetry removed. Asked if any further questions. [facility] nurse states no questions at this time.
--- NOTE | 2023-10-29 09:06 | DS.PCM_ITS ---
Providers Date of Admission: 10/27/23 Date of Discharge: 10/28/23 Primary Care Physician: SANDY Spencer Consultations 10/28/23 00:14 Consult: Cardiology Routine Consulting Provider: Lloyd Crisostomo Reason for Consult: nstemi EMERGENT Consult: Yes MD Notified: Yes Date Notified: 10/27/23 Time Notified: 23:18 Method of Notification: Verbal Reason For Visit: NON-ST ELEVATION HI Diagnosis Discharge Diagnosis (1) Non-STEMI (non-ST elevated myocardial infarction): Status: Acute Code(s): I21.4 - Non-ST elevation (NSTEMI) myocardial infarction (2) Hypertension: Status: Chronic Code(s): I10 - Essential (primary) hypertension (3) Lung mass: Status: Acute Code(s): R91.8 - Other nonspecific abnormal finding of lung field Plan 77-year-old female came to ED with with sudden onset of headache, vomiting, sudden hot flash while she was watching very. She had headache with the upper thoracic spine pain. Patient had 2 times of vomiting and some nausea but denied neck pain stiffness change in vision fever, syncope or seizure associated with headache. BP was high 161/66 but patient afebrile. 1. Atypical presentation of Non-ST elevation HI.?Admit patient to progressive care unit. Twelve-lead EKG were done. First EKG shows normal sinus rhythm with sinus arrhythmia. 2 more EKGs worse sinus rhythm with 67 and 1 sinus bradycardia [address]-T changes. On surveillance monitor sinus rhythm 63 with multiple PVCs. High-sensitivity troponins high, 1482, 21,578 and 30,937. Patient was taken to the [facility]. Cath findings reviewed with the heading and priming tool setter. LAD severely diseased vessel with high-grade 90% proximal LAD, mid 80% in diagonal vessels with mild to moderate disease. Circumflex nondominant subtotally occluded with collateralization and diffuse small vessel disease. Ramus totally occluded proximally and likely culprit lesion with collateralization. RCA severely diseased with calcification, mid 90% stenosis with right to left collateralization filling the ramus intermedius. Patient on aspirin IV heparin drip, atorvastatin, metoprolol and nitro ointment as needed. Patient does not have chest pain or shortness of breath. Discussed with heading and priming tool setter, Dr. Orozco and he will discuss with the heading and priming tool setter, Dr. Begum in [facility]. I talked to hospitalist and gave the clinical information and hospital course. Patient was discharged at 2325 hrs on 10/27 at night to [facility]. 2. Right middle lobe lung mass: CTA chest was done which showed no obvious filling defect suggestive of pulmonary embolism but 2.4 x 2.1 x 2 cm solid perihilar mass in right middle lobe which will need further evaluation either CT-guided biopsy of bronchoscopy and biopsy. Incidental finding was age- indeterminate mild compression deformity of T7 and T8 vertebral bodies. 10/27: I mentioned about the pulmonary mass to the hospitalist on clinical exchange of information and need for further intervention. 3. Nausea and vomiting?add Zofran. Probably atypical presentation of non-STEMI 4.. DVT prophylaxis?on IV heparin drip Patient is being discharged to [facility] for further management. Medications at Discharge Home Medications docusate sodium 100 mg capsule (Stool Softener) 100 mg PO DAILY PRN constipation 04/02/22 lactobacillus combination no.4 3 billion cell capsule (Probiotic) 30,000,000 cell PO DAILY PROBIOTIC 04/02/22 magnesium oxide 400 mg PO DAILY supplement 04/02/22 acetaminophen 500 mg tablet (Tylenol Extra Strength) 500 mg PO Q6H PRN pain #20 tabs 07/24/22 ascorbic acid (vitamin C) 500 mg tablet,extended release (C-500) 500 mg PO DAILY 10/17/23 carboxymethylcellulose sodium 1 % eye liquid gel drops 1 drp EACH EYE DAILY 10/17/23 cholecalciferol (vitamin D3) 50 mcg (2,000 unit) capsule (Vitamin D3) 50 mcg PO DAILY 10/17/23 elderberry fruit 200 mg capsule 200 mg PO PRN PRN ILLNESS 10/17/23 Physical Exam Narrative Seen and examined. Patient did not have chest pain or shortness of breath but had headache and vomiting and nausea. No prior history of lung disease. Never been a smoker. Physical exam General: Alert, Oriented x3, Cooperative HEENT: Atraumatic, PERRLA, EOMI, Normocephalic Oral: No Gingival or Mucosal Lesions/ Ulcerations Neck: Supple, No JVD, Negative Carotid Bruits Chest wall/Lungs: Air entry diminished in bilateral lung bases. No crepitation/rhonchi Cardiovascular: Regular rate, Regular Rhythm, Normal S1, Normal S2, No M/G/R Abdomen: Bowel Sounds Present, Soft, Non Tender, Non-Distended : No dysuria. No renal angle tenderness. No suprapubic tenderness. Extremities: No edema, Capillary Refill Less than 3 Seconds Skin: No rashes, No breakdown Musculoskeletal: No Tenderness to Palpation of Joints or Extremities Neurological: Cranial nerves II-XII grossly intact, DTR 2+/4. No acute focal neurological deficit. Psych/Mental Status: Normal Affect, Appropriate. Weight / BMI Weight Weight: 187 lb Body Mass Index (BMI) 32.1 ABG / Lab / Microbiology Data 10/28/23 06:33 10/28/23 06:33 Laboratory: Laboratory Results - last 24 hr 10/27/23 19:05: WBC 9.7, RBC 4.97, Hgb 15.4 H, Hct 48.2 H, MCV 97.0, MCH 31.0, MCHC 32.0, RDW Std Deviation 42.9, RDW Coeff of Flash 12.0, Plt Count 326, MPV 10.3, Sodium 137, Potassium 3.5, Chloride 103, Carbon Dioxide 26.0, Anion Gap 8, BUN 18, Creatinine 0.72, Estim Creat Clear Calc 61.10, Est GFR (MDRD) Af Amer 100, Est GFR (MDRD) Non-Af 83, BUN/Creatinine Ratio 24.9 H, Glucose 141 H, Calcium 9.2, Magnesium 2.5, Troponin I High Sens 1482 H* 10/27/23 23:49: PT 13.2, INR 1.0, APTT 34.1, Troponin I High Sens 38652 H* 10/28/23 02:00: Troponin I High Sens 38810 H* 10/28/23 06:33: WBC 12.3 H, RBC 4.63, Hgb 14.2, Hct 44.2, MCV 95.5, MCH 30.7, MCHC 32.1, RDW Std Deviation 42.5, RDW Coeff of Flash 12.0, Plt Count 331, MPV 9.9, Immature Gran % (Auto) 0.300, Neut % (Auto) 76.2 H, Lymph % (Auto) 15.2 L, [place] % (Auto) 7.6, Eos % (Auto) 0.2, Baso % (Auto) 0.5, Absolute Neuts (auto) 9.4 H, Absolute Lymphs (auto) 1.86, Nucleated RBC % 0, PT 13.9, INR 1.1, APTT 120.5 H*, Sodium 138, Potassium 3.8, Chloride 106, Carbon Dioxide 23.0, Anion Gap 9, BUN 13, Creatinine 0.56, Estim Creat Clear Calc 61.07, Est GFR (MDRD) Af Amer 134, Est GFR (MDRD) Non-Af 111, BUN/Creatinine Ratio 23.2 H, Glucose 127 H, Calcium 8.5, Magnesium 2.5, Troponin I High Sens 72297 H* Radiography Diagnostic Testing: Radiology Impression Brain CT 10/27/23 20:20 IMPRESSION: No acute intracranial abnormality. Chronic involutional and ischemic changes of the brain. Electronically Signed: Norm Lemus MD at 21:11 EDT Reading Location ID and State: [employer] / [place] Tel , Service support , Chest X-Ray 10/27/23 20:55 IMPRESSION: 2 cm right hilar lymphadenopathy versus perihilar mass. In either instance, recommend Chest CT w/ contrast. Electronically Signed: Norm Lemus MD at 21:23 EDT , Chest CTA 10/27/23 21:37 IMPRESSION: Age indeterminate mild compression deformities of T7 and T8 vertebral bodies. Solid 2.4 cm right perihilar lung mass is highly concerning for malignancy. Recommend IR consult for CT-guided percutaneous lung biopsy. Heterogeneous, nodular and enlarged thyroid gland. Recommend nonemergent thyroid ultrasound for further evaluation. Electronically Signed: Norm Lemus MD at 23:39 EDT , ADDENDUM: 10/27/23 2350 IMPRESSION: Age indeterminate mild compression deformities of T7 and T8 vertebral bodies. Solid 2.4 cm right perihilar lung mass is highly concerning for malignancy. Recommend IR consult for CT-guided percutaneous lung biopsy. Heterogeneous, nodular and enlarged thyroid gland. Recommend nonemergent thyroid ultrasound for further evaluation. N.B. : Ramsey Muller DO, confirmed on 10/27/2023 23:43:23 (ET) that the healthcare facility has received the radiology report. Electronically Signed: Norm Lemus MD at 23:39 EDT , Meaningful Use Info Meaningful Use Meaningful Use Diagnoses (Choose all that apply): None applicable Ischemic Stroke Statin Dosing Therapy Reference: STATIN DOSE THERAPY REFERENCE: * Patients > 75 years receive moderate or high dose statin therapy. * Patients 75 years or YOUNGER should receive HIGH intensity statin dose unless contraindicated. You will be required to document reason for non-treatment if statin daily dose does not meet guidelines. HIGH DOSE STATIN THERAPY DAILY Atorvastatin > than or = to 40 mg Rosuvastatin > than or = to 20 mg Amlodipine + Atorvastatin > than or = to 2.5/40 mg Ezetimibe + Simvastatin 10/80 mg Simvastatin 80mg Discharge Plan Admission Admit Date/Time: 10/27/23 23:16 Primary Reason for Your Visit: Non-STEMI, triple-vessel CAD Attending Provider: Raymundo Burgos Primary Care Provider: Eduin Aguilar Consulting Providers: Lloyd Crisostomo; Jeremi Watts Discharge Orders/Prescriptions Prescriptions: No Action docusate sodium [Stool Softener] 100 mg Capsule 100 mg PO DAILY PRN (Reason: constipation) Probiotic 3 billion cell Capsule 30,000,000 cell PO DAILY magnesium oxide 400 mg magnesium Tablet 400 mg PO DAILY acetaminophen [Tylenol Extra Strength] 500 mg tablet 500 mg PO Q6H PRN (Reason: pain) Qty: 20 0RF carboxymethylcellulose sodium 1 % drops, liquid gel 1 drp EACH EYE DAILY ascorbic acid (vitamin C) [C-500] 500 mg tablet extended release 500 mg PO DAILY cholecalciferol (vitamin D3) [Vitamin D3] 50 mcg (2,000 unit) capsule 50 mcg PO DAILY elderberry fruit 200 mg capsule 200 mg PO PRN PRN (Reason: ILLNESS) Referrals / Follow Up: Eduin Aguilar PA [Primary Care Provider] - Disposition Disposition (needs filled in before D/C Order can be placed): Acute Care Hospital Charges/Coding Visit Charges Inpatient E&M: 67549 Disch Hosp >30min
== END 2023-10-28 23:55 | disposition short-term general hospital (02) | DRG 281 ==
LOC: ED 19:56 → PCU 23:31
PROVIDERS: Admitting Provider Family Medicine; Emergency Provider Emergency Medicine; PCP Physician Assistant; Visit Provider Internal Medicine
DX: I21.4 Non-ST elevation (NSTEMI) myocardial infarction (principal); I47.20 Ventricular tachycardia, unspecified; E04.9 Nontoxic goiter, unspecified; I10 Essential (primary) hypertension; I25.10 Atherosclerotic heart disease of native coronary artery without angina pectoris; R11.2 Nausea with vomiting, unspecified; R91.8 Other nonspecific abnormal finding of lung field; I49.3 Ventricular premature depolarization
CPT/HCPCS: 36415; 70450; 71045; 71275; 80048; 83735; 84484; 85025; 85027; 85610; 85730; 93005; 93306; 93458; 99152; 99153; 99285; J7030; Q9967; A4216; C1769; C1894; J2405